=== PATIENT | female | born 1960 | race Caucasian/White ===

== ENCOUNTER 2016-08-29 13:22 | Emergency (ER) | payer BC ==
[2016-08-29 13:32] VITALS: BP 116/78
[2016-08-29] MEDS ORDERED: Sodium Chloride 0.9% 10 ML Syringe FLUSH PRN (14:24)
[2016-08-29] MEDS ORDERED: Metoclopramide 10 MG/2 ML SDV IVPUSH ONE (14:24)
[2016-08-29] MEDS ORDERED: Sodium Chloride 0.9% 1,000 ML IV ONE (14:24)
[2016-08-29] MEDS ORDERED: diphenhydrAMINE 50 MG/ML SDV IVPUSH ONE (14:24)
[2016-08-29] MEDS ORDERED: Ketorolac 30 MG/ML SDV IVPUSH ONE (14:24)
--- NOTE | 2016-08-29 14:48 | CT ---
Head CT Technique: Multiple axial sections through the brain were obtained. Intravenous contrast was not utilized. Comparison: No previous study. Findings: Ventricles along with basal cisterns and sulci over the convexities appear within normal limits for the patient's age. No abnormal parenchymal densities are seen. No evidence of intracranial hemorrhage. No midline shift or mass effect is seen. Bone window settings were reviewed which shows mucosal thickening within the right side of the posterior ethmoid sinus. Other sinuses are clear. No acute calvarial abnormality is seen. Enlarged right jugular foramen is seen which is felt to be normal variant. Impression: 1. Findings which are felt to be incidental as described above. No acute intracranial abnormality or acute skull fracture is seen. Diagnostic code #2
--- NOTE | 2016-08-29 15:04 | EDM.PDOC ---
ED HPI GENERAL MEDICAL PROBLEM - General Chief Complaint: Headache Stated Complaint: Headache Time Seen by Provider: 08/29/16 14:10 Source of Information: Reports: Patient, RN Notes Reviewed History Limitations: Reports: No Limitations - History of Present Illness INITIAL COMMENTS - FREE TEXT/NARRATIVE: 56 year old female presents to the ED complaints of severe left sided headache associated with nausea, vomiting, photophobia and phonophobia. She reports "dizziness" which she describes as feeling as though she will pass out. She denies vertigo type symptoms. She hit her head on her car door two days ago and has had a persistent headache since. She has tried Tylenol and Excedrin with no relief. She has a history of migraines but says this is different and is more severe. She also complaints of neck and shoulder muscle discomfort. She has a history of RA. No vision changes, slurred speech, difficulty walking, fever or chills. She is not on blood thinners or aspirin. Headache Pain Score (Numeric/FACES): 7 - Related Data Allergies Allergy/AdvReac Type Severity Reaction Status Date / Time codeine Allergy Severe Hives Verified 08/29/16 13:31 hydrocodone Allergy Severe Rash Verified 08/29/16 13:31 morphine Allergy Severe Hives Verified 08/29/16 13:31 ondansetron HCl Allergy Itching Verified 08/29/16 13:31 [From Zofran (as hydrochloride)] Home Meds: Home Meds Adalimumab [Humira] 40 mg SQ ASDIRECTED 08/29/16 [History] Cyclobenzaprine [Flexeril] 10 mg PO TID 08/29/16 [History] Folic Acid 1 mg PO DAILY 08/29/16 [History] Past Medical History - Past Health History Medical/Surgical History: Denies 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 Denies: Fever, Chills HEENT: Reports: No Symptoms. Denies: Vision Change Respiratory: Reports: No Symptoms. Denies: Shortness of Breath Cardiovascular: Reports: No Symptoms. Denies: Chest Pain GI/Abdominal: Reports: Nausea, Vomiting. Denies: Abdominal Pain Musculoskeletal: Reports: Neck Pain, Shoulder Pain - Physical Exam Exam: See Below Exam Limited By: No Limitations General Appearance: Alert, WD/WN, Moderate Distress Eye Exam: Bilateral Eye: EOMI, PERRL Throat/Mouth: Normal Inspection, Normal Oropharynx Head Exam: Atraumatic, Normocephalic Neck: Normal Inspection, Supple, Non-Tender, Full Range of Motion. No: Tender Midline Respiratory/Chest: No Respiratory Distress, Lungs Clear, Normal Breath Sounds Cardiovascular: Regular Rate, Rhythm Neuro Exam (Abbreviated): Alert, Oriented, CN II-XII Intact, Normal Cognition, Normal Gait, No Motor/Sensory Deficits Skin Exam: Warm, Dry, Intact Course - Vital Signs Last Recorded V/S: Last Vital Signs Temp 97.3 F 08/29/16 13:28 Pulse 89 08/29/16 13:28 Resp 18 08/29/16 13:28 BP 116/78 08/29/16 13:28 Pulse Ox 97 08/29/16 13:28 - Orders/Labs/Meds Orders: Active Orders 24 hr Category Date Time Status Orthostatic Vital Signs [RC] ASDIRECTED Care 08/29/16 14:25 Active Peripheral IV Care [RC] . DIRECTED Care 08/29/16 14:25 Active Peripheral IV Insertion Adult [OM.PC] Stat Oth 08/29/16 14:25 Ordered Meds: Medications Discontinued Medications Generic Name Dose Route Start Last Admin Trade Name Bharti PRN Reason Stop Dose Admin Diphenhydramine HCl 50 mg 08/29/16 14:24 08/29/16 14:46 Benadryl IVPUSH 08/29/16 14:25 50 mg ONETIME ONE Administration Sodium Chloride 1,000 mls @ 999 mls/hr 08/29/16 14:24 08/29/16 14:47 Normal Saline IV 08/29/16 15:24 999 mls/hr ONETIME ONE Administration Ketorolac Tromethamine 30 mg 08/29/16 14:24 08/29/16 14:45 Toradol IVPUSH 08/29/16 14:25 30 mg ONETIME ONE Administration Metoclopramide HCl 5 mg 08/29/16 14:24 08/29/16 14:44 Reglan IVPUSH 08/29/16 14:25 5 mg ONETIME ONE Administration Sodium Chloride 10 ml 08/29/16 14:24 08/29/16 14:44 Saline Flush FLUSH 10 ml ASDIRECTED PRN Administration Keep Vein Open - Re-Assessments/Exams Free Text/Narrative Re-Assessment/Exam: CT of head is negative for acute findings. Her pain improved to a 3/10 after Benadryl, Reglan and Toradol. She started to feel itchy after the medications and reported hives. She had no visible hives on exam. She is quite anxious. She' s had Benadryl and Toradol in the past with no problems and feels it may be the reglan. Offered steroid both for headache and allergic reaction symptoms but patient refused. She was monitored with no worsening of symptoms and discharged home. Departure - Departure Time of Disposition: 16:23 Disposition: Home, Self-Care 01 Condition: Fair Clinical Impression: Headache - Discharge Information Instructions: General Headache Without Cause Referrals: Martina Landry PA-C [Primary Care Provider] - Forms: ED Department Discharge Additional Instructions: Go home and rest in a dark quiet environment Tylenol or Ibuprofen as needed for pain Return to ER if your symptoms worsen No driving today due to sedating medications given in the ER Benadryl as needed for itching - My Orders Last 24 Hours: My Active Orders 08/29/16 14:25 Orthostatic Vital Signs [RC] ASDIRECTED Peripheral IV Care [RC] . DIRECTED Peripheral IV Insertion Adult [OM.PC] Stat - Assessment/Plan Last 24 Hours: My Active Orders 08/29/16 14:25 Orthostatic Vital Signs [RC] ASDIRECTED Peripheral IV Care [RC] . DIRECTED Peripheral IV Insertion Adult [OM.PC] Stat
== END 2016-08-29 16:36 | disposition home or self-care (01) ==
LOC: JD.ED 13:22
DX: R51 Headache (principal); Z87.891 Personal history of nicotine dependence; Z88.5 Allergy status to narcotic agent; Z88.8 Allergy status to other drugs, medicaments and biological substances; Z79.899 Other long term (current) drug therapy
CPT/HCPCS: 70450; 96361; 96374; 96375; 99284; J1200; J1885; J2765; J7040; J7050

== ENCOUNTER 2016-11-07 11:46 | Day surgery (SDC) | payer BC, OTHER ==
[~2016-11-07 11:46] MED LIST: Lactated Ringers 1,000 ML IV SCH; Lidocaine 1%/Sod Bicarbonate in NS 8.4% 1 ML Syringe PRN; Scopolamine 1.5 MG Transdermal Patch TRDERM ONE; Sodium Chloride 0.9% 10 ML Syringe FLUSH PRN
[2016-11-07] MEDS ORDERED: Triamcinolone Acetonide 40 MG/ML 1 ML MDV ONE ×2 (13:17→13:49)
[2016-11-07] MEDS ORDERED: Lidocaine 1% 30 ML SDV ONE (13:23)
[2016-11-07] MEDS ORDERED: Scopolamine 1.5 MG Transdermal Patch TRDERM ONE (13:45)
--- NOTE | 2016-11-07 13:50 | PCM.PREANE ---
Preanesthetic Assessment - Anesthesia/Transfusion/Family Hx Anesthesia History: Prior Anesthesia Reaction Type of Anesthesia Reaction: Excessive Nausea/Vomiting Family History of Anesthesia Reaction: No Transfusion History: No Prior Transfusion(s) - Review of Systems General: No Symptoms Pulmonary: No Symptoms Cardiovascular: No Symptoms Gastrointestinal: No Symptoms Neurological: No Symptoms Other: Reports: None - Physical Assessment NPO Status Date: 11/07/16 NPO Status Time: 05:30 Pulse: 62 O2 Sat by Pulse Oximetry: 94 Respiratory Rate: 18 Blood Pressure: 99/50 Temperature: 97.9 C Height: 1.7 m Weight: 76.204 kg ASA Class: 2 Mental Status: Alert & Oriented x3 Airway Class: Mallampati = 1 Dentition: Reports: Normal Dentition Thyro-Mental Finger Breadths: 3 Mouth Opening Finger Breadths: 3 ROM/Head Extension: Full Lungs: Clear to Auscultation, Normal Respiratory Effort Cardiovascular: Regular Rate, Regular Rhythm - Lab Values: Laboratory Last Values MRSA (PCR) Negative 10/29/16 16:38 - Allergies Allergies/Adverse Reactions: Allergies Allergy/AdvReac Type Severity Reaction Status Date / Time codeine Allergy Severe Hives Verified 11/06/16 14:49 hydrocodone Allergy Severe Rash Verified 11/06/16 14:49 morphine Allergy Severe Hives Verified 11/06/16 14:49 ondansetron HCl Allergy Itching Verified 11/06/16 14:49 [From Zofran (as hydrochloride)] - Acknowledgements Anesthesia Type Planned: Regional Block (Ankle Block), MAC Pt an Appropriate Candidate for the Planned Anesthesia: Yes Alternatives and Risks of Anesthesia Discussed w Pt/Guardian: Yes Pt/Guardian Understands and Agrees with Anesthesia Plan: Yes PreAnesthesia Questionnaire - Past Health History Medical/Surgical History: Denies Medical/Surgical History HEENT History: Reports: None Cardiovascular History: Reports: None Respiratory History: Reports: None Gastrointestinal History: Reports: Colon Polyp, Diverticulosis Genitourinary History: Reports: None 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: , 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 (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 Below) Other OB/BYN History: ectopic Musculoskeletal History: Reports: Other (See Below) Other Musculoskeletal History: enthesopathy Neurological History: Reports: Migraines Psychiatric History: Reports: None Endocrine/Metabolic History: Reports: None Hematologic History: Reports: None Immunologic History: Reports: None Oncologic (Cancer) History: Reports: None Dermatologic History: Reports: None - Infectious Disease History Infectious Disease History: Reports: Hepatitis A - Past Surgical History HEENT Surgical History: Reports: None Cardiovascular Surgical History: Reports: None Respiratory Surgical History: Reports: None GI Surgical History: Reports: Cholecystectomy, Colonoscopy, Other (See Below) Other GI Surgeries/Procedures: hernia repair Female Surgical History: Reports: None Endocrine Surgical History: Reports: None Musculoskeletal Surgical History: Reports: Carpal Tunnel, Other (See Below) Other Musculoskeletal Surgeries/Procedures:: R ankle surgery, R meniscus repair Oncologic Surgical History: Reports: None Dermatological Surgical History: Reports: None - SUBSTANCE USE Smoking Status *Q: Former Smoker Tobacco Use Within Last Twelve Months: No Second Hand Smoke Exposure: No Days Per Week of Alcohol Use: 0 Recreational Drug Use History: No - HOME MEDS Home Medications: Home Meds Adalimumab [Humira] 40 mg SQ Q14D 08/29/16 [History] Cyclobenzaprine [Flexeril] 10 mg PO BEDTIME PRN 08/29/16 [History] Folic Acid 1 mg PO DAILY 08/29/16 [History] Ca Carbonate/Vitamin D3/Vit K [Calcium + D Soft Chewable Tab] 1 tab PO DAILY [History] Esomeprazole Magnesium [Nexium 24Hr] 20 mg PO DAILY 11/06/16 [History] Gluc/Jonah-Msm#1/Vit C/Krish/Bor [Qgyciiy-Qrtlp-XUT Complex Cplt] 1 tab PO DAILY 11/06/16 [History] Meloxicam [Mobic] 7.5 mg PO BID 11/06/16 [History] Methotrexate Sodium [Methotrexate] 15 mg PO WEEKLY 11/06/16 [History] SUMAtriptan Succinate [Imitrex] 50 mg PO ASDIRECTED PRN 11/06/16 [History] traMADol [Ultram] 25 mg PO TID PRN 11/06/16 [History] - CURRENT (IN HOUSE) MEDS Current Meds: Current Medications Lactated Ringer's (Ringers, Lactated) 1,000 mls @ 125 mls/hr IV ASDIRECTED JOSÉ MIGUEL Stop: 11/07/16 23:00 Last Admin: 11/07/16 13:18 Dose: 125 mls/hr Lidocaine/Sodium Bicarbonate (Buffered Lidocaine 1% In Ns 8.4%) 0.25 ml .XX ONETIME PRN PRN Reason: Prior to IV Start Stop: 11/07/16 18:00 Last Admin: 11/07/16 13:18 Dose: 0.25 ml Scopolamine (Transderm-Scop) 1.5 mg TRDERM ONETIME ONE Stop: 11/07/16 13:46 Sodium Chloride (Saline Flush) 10 ml FLUSH ASDIRECTED PRN PRN Reason: Keep Vein Open Stop: 11/07/16 18:00 Discontinued Medications Bupivacaine HCl (Marcaine 0.25%) Confirm Administered Dose 30 ml .ROUTE .STK- MED ONE Stop: 11/07/16 13:18 Lidocaine HCl (Xylocaine-Mpf 1%) Confirm Administered Dose 30 ml .ROUTE .STK- MED ONE Stop: 11/07/16 13:24 Scopolamine (Transderm-Scop) 1.5 mg TRDERM ONETIME ONE Stop: 11/07/16 07:01 Triamcinolone Acetonide (Kenalog-40) Confirm Administered Dose 40 mg .ROUTE .STK -MED ONE Stop: 11/07/16 13:18
[2016-11-07] MEDS ORDERED: ceFAZolin 1 GM Vial ONE (14:24)
[2016-11-07] MEDS ORDERED: Lidocaine 1% 4 ML ONE (14:24)
[2016-11-07] MEDS ORDERED: Propofol 200 MG/20 ML SDV ONE ×4 (14:25→16:24)
[2016-11-07] MEDS ORDERED: fentaNYL 100 MCG/2 ML SDV ONE ×2 (14:25→16:25)
[2016-11-07] MEDS ORDERED: Midazolam 1 MG/ML 2 ML SDV ONE (14:25)
[2016-11-07] MEDS ORDERED: Ketamine 500 mg/10 ML MDV ONE (14:26)
[2016-11-07] MEDS: Bupivacaine 0.25% 30 ML SDV ONE ×2 (14:46→16:22)
[2016-11-07] MEDS ORDERED: fentaNYL 100 MCG/2 ML SDV IVPUSH PRN (15:11)
--- NOTE | 2016-11-07 16:45 | PCM48HPAN ---
Post Anesthesia Note - EVALUATION WITHIN 48HRS OF ANESTHETIC Vital Signs in Normal Range: Yes Patient Participated in Evaluation: Yes Respiratory Function Stable: Yes Airway Patent: Yes Cardiovascular Function Stable: Yes Hydration Status Stable: Yes Pain Control Satisfactory: Yes Nausea and Vomiting Control Satisfactory: Yes Mental Status Recovered: Yes
[2016-11-07 17:55] VITALS: BP 117/72
--- NOTE | 2016-11-08 10:10 | CR ---
Left foot: Multiple fluoroscopic spot views were obtained of the left foot utilizing C-arm device. Comparison: No previous foot exam. Osteotomy noted within the distal first metatarsal and distal fifth metatarsal with metatarsal shaving. Fixation screws are placed across the osteotomy. Additional osteotomy is seen within the distal second metatarsal with single screw placement. Fluoroscopy time given as 22.5 seconds. Impression: 1. Osteotomy within the first, second and fifth metatarsals with metatarsal shaving. Fixation screws noted on final films affixing the osteotomy sites. Diagnostic code #2
--- NOTE | 2016-11-13 10:01 | PCM.OPNOTE ---
- General Post-Op/Procedure Note Date of Surgery/Procedure: 11/07/16 Operative Procedure(s): 1. Left foot hallux valgus correction with distal chevron osteotomy with lateral capsulotomy and medial eminence resection. 2. Left second claw toe correction wtih flexor tenotomy and extensor tendon lengthening with dorsal capsulotomy of second MTP. 3. Left second metatarsal shortening osteotomy. 4. Bunionette correction with distal chevron osteotomy. 5. left knee corticosteroid injection Pre Op Diagnosis: left knee osteoarthrosis. left foot hallux valgus. left foot second toe claw toe deformity. left foot bunionette deformity. left foot second toe metatarsalgia Post-Op Diagnosis: Same Anesthesia Technique: Local, MAC, Regional Block Primary Surgeon: Darwin Suero Anesthesia Provider: Elly Brito Die Turner: Mariely Kaye in mLs: 10 Complications: None Condition: Good
--- NOTE | 2016-11-13 14:40 | OR ---
DATE OF OPERATION: 11/07/2016 SURGEON: Darwin Suero MD OPERATION PERFORMED: 1. Left foot hallux valgus correction with distal Chevron osteotomy with lateral capsulotomy and medial eminence resection. 2. Left second claw toe correction with flexor tenotomy and extensor tendon lengthening with dorsal capsulotomy of second metatarsophalangeal joint. 3. Left second metatarsal shortening osteotomy. 4. Bunionette correction with distal Chevron osteotomy. 5. Left knee corticosteroid injection. PREOPERATIVE DIAGNOSIS: 1. Left knee osteoarthrosis. 2. Left foot hallux valgus. 3. Left foot second toe claw toe deformity. 4. Left foot bunionette deformity. 5. Left foot toe metatarsalgia. POSTOPERATIVE DIAGNOSIS: 1. Left knee osteoarthrosis. 2. Left foot hallux valgus. 3. Left foot second toe claw toe deformity. 4. Left foot bunionette deformity. 5. Left foot toe metatarsalgia. ANESTHESIA: Local MAC with regional block. ANESTHESIA PROVIDER: , TESTER OPERATOR HELPER SPACE AND STORAGE CLERK: Mariely Kaye PA-C. ESTIMATED BLOOD LOSS: Less than 10 mL. COMPLICATIONS: None. CONDITION: Stable. DESCRIPTION OF PROCEDURE: The patient was identified in the preoperative holding area. Proper site was marked and identified by the surgeon. The patient was taken back to the operative theater where after adequate anesthesia, a nonsterile tourniquet was applied to the left lower extremity, and then was sterilely prepped and draped in the usual sterile fashion. OR time-out was performed. The patient received 2 g IV Ancef. After this left lower extremity was exsanguinated with the Esmarch, and Esmarch was used as a tourniquet on the calf. Next, an ankle block was performed along with local along the incisional site. A medial incision was made over the first MTP joint and a capsulotomy was performed. Capsule was then raised and the patient was noted to have a prominent medial eminence. The patient had no signs of osteoarthrosis of the first MTP joint. At this time, the medial eminence resection was then done, and a chevron osteotomy was done to the distal metatarsal in the metatarsal metaphysis region. Once this was completed, the distal portion was shifted laterally, and a lateral capsulotomy was performed. At this time, a guide pin for the 3-0 Kaci cannulated screw was placed. It was found to be in adequate position with good correction of the hallux valgus on radiographs. At this time, a 3-0 Edwards cannulated screw was placed across the osteotomy site in retrograde fashion and had good compression. At this time, a plantar incision was made over the proximal phalanx. This was brought down to the flexor tendon sheath. The flexor tendon sheath was opened. The long flexor tendon was identified and a tenotomy was performed. An incision was then made dorsally over the second MTP joint. The extensor longus was then lengthened for later repair with Ethibond. Capsulotomy was then also performed of the dorsum of the second MTP joint for the claw-toe deformity. At this time, also the second metatarsal had a diagonal osteotomy performed for shortening. Once this was completed, it was shortened and aligned with the first ray and a 2- 0 cannulated screw was then placed dorsally to plantarly to hold the osteotomy site. It was found to have adequate fixation. Attention was then turned to the bunion, and a bunionette deformity incision was made along the lateral aspect of the 5th metatarsal phalangeal joint. This was brought down to the capsule, this was then raised and incised. Distal chevron osteotomy was then performed of the 5th metatarsal. This was then moved medially for correction of the bunionette deformity and was pinned in place. At this time, an another 2-0 cannulated Edwards screw was used in retrograde fashion to secure the 5th metatarsal osteotomy. The lateral edge of the 5th metatarsal was then resected using the rongeur. At this time, on radiographs, this was found to have adequate fixation with correction of the bunionette and bunion deformity as well as shortening of the second metatarsal. Adequate saline was then irrigated through all wounds. A 3-0 Ethibond was then used for closure of the capsule, both with a bunionette and bunion deformity with a [id number] fashion to tighten capsule with good correction under fluoroscopy and on exam of the deformities. The skin was then closed using 3-0 Vicryl and 4-0 nylon. The patient was placed in a sterile soft dressing and a posterior slab splint. The patient then had a left knee corticosteroid injection with 2 mL 40 mg Kenalog and 4 mL of 0.25% Marcaine. The patient tolerated the procedures well. The patient was sent to PACU in stable condition. GALEN /[id number]
== END 2016-11-07 17:50 | disposition home or self-care (01) ==
LOC: JD.SDS 11:46
PROVIDERS: ATTEND Orthopaedic Surgery
DX: M17.12 Unilateral primary osteoarthritis, left knee (principal); M20.12 Hallux valgus (acquired), left foot; Q66.89 Other specified congenital deformities of feet; M21.622 Bunionette of left foot; M77.42 Metatarsalgia, left foot; Z88.8 Allergy status to other drugs, medicaments and biological substances; Z79.899 Other long term (current) drug therapy; Z90.49 Acquired absence of other specified parts of digestive tract; Z98.890 Other specified postprocedural states; Z87.891 Personal history of nicotine dependence; W10.9XXA Fall (on) (from) unspecified stairs and steps, initial encounter
CPT/HCPCS: 28110; 28285; 28296; 76000; 87641; A9270; C1713; C1769; J0690; J2250; J3010; J3301; J3490; J7120; 01480; J2704

== ENCOUNTER 2017-02-26 09:53 | Inpatient (IN) | payer BC ==
--- NOTE | 2017-02-26 09:05 | PCM.PREANE ---
Preanesthetic Assessment - Anesthesia/Transfusion/Family Hx Anesthesia History: Prior Anesthesia Reaction Type of Anesthesia Reaction: Excessive Nausea/Vomiting (vomits times twice after waking up from surgery and then thats all.) Family History of Anesthesia Reaction: No Transfusion History: No Prior Transfusion(s) Intubation History: Unknown - Review of Systems General: No Symptoms Pulmonary: No Symptoms (quit smoking in 2008) Cardiovascular: No Symptoms (occasional angina noted per patient which she contributes to stress/anxiety.), Dyspnea on Exertion Gastrointestinal: No Symptoms Neurological: No Symptoms (history of rheumatoid arthritis, history of vertigo) , Headache (history of migraines) Other: Reports: None (History of Hepatitis A as a teenager but resolved per patient./BUN elevated =21), Depression (with rheumatoid arthritis) - Physical Assessment NPO Status Date: 02/25/17 NPO Status Time: 01:29 Pulse: 65 O2 Sat by Pulse Oximetry: 95 Respiratory Rate: 16 Blood Pressure: 121/77 Temperature: 36.9 C Height: 1.7 m Weight: 78.018 kg ASA Class: 2 Mental Status: Alert & Oriented x3 Airway Class: Mallampati = 2 Dentition: Reports: Normal Dentition, Missing Tooth/Teeth, Caries Thyro-Mental Finger Breadths: 3 Mouth Opening Finger Breadths: 3 ROM/Head Extension: Full Lungs: Clear to Auscultation, Normal Respiratory Effort Cardiovascular: Regular Rate, Regular Rhythm, No Murmurs - Lab Values: MRSA screen negative. All labs reviewed and noted and within acceptable ranges to proceed with scheduled procedure. BUN= 21 Cr=0.7 Platelets= 239,000 - Imaging/EKG Impressions: EKG: SB rate=56 CXR: negative - Allergies Allergies/Adverse Reactions: Allergies Allergy/AdvReac Type Severity Reaction Status Date / Time codeine Allergy Mild Hives Verified 02/26/17 11:01 morphine Allergy Mild Hives Verified 02/26/17 11:01 ondansetron HCl Allergy Itching Verified 02/26/17 11:01 [From Zofran (as hydrochloride)] - Anesthesia Plan Pre-Op Medication Ordered: None - Acknowledgements Anesthesia Type Planned: Spinal Pt an Appropriate Candidate for the Planned Anesthesia: Yes Alternatives and Risks of Anesthesia Discussed w Pt/Guardian: Yes Pt/Guardian Understands and Agrees with Anesthesia Plan: Yes PreAnesthesia Questionnaire - Past Health History Medical/Surgical History: Denies Medical/Surgical History HEENT History: Reports: None Cardiovascular History: Reports: None Respiratory History: Reports: None Gastrointestinal History: Reports: Colon Polyp, Diverticulosis, Other (See Below ) Other Gastrointestinal History: hepatitis A Genitourinary History: Reports: None 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[employer] SQU[employer] History: Reports: Ectopic , , Other (See Below) Musculoskeletal History: Reports: Other (See Below) Other Musculoskeletal History: enthesopathy Neurological History: Reports: Migraines Psychiatric History: Reports: None Endocrine/Metabolic History: Reports: None Hematologic History: Reports: None Immunologic History: Reports: None Oncologic (Cancer) History: Reports: None Dermatologic History: Reports: None - Infectious Disease History Infectious Disease History: Reports: Hepatitis A - Past Surgical History Head Surgeries/Procedures: Reports: None HEENT Surgical History: Reports: Oral Surgery Cardiovascular Surgical History: Reports: None Respiratory Surgical History: Reports: None GI Surgical History: Reports: Cholecystectomy, Colonoscopy, Hernia Repair/Other , Other (See Below) Other GI Surgeries/Procedures: hernia repair Female Surgical History: Reports: Cystectomy Male Surgical History: Reports: None Endocrine Surgical History: Reports: None Neurological Surgical History: Reports: None Musculoskeletal Surgical History: Reports: Carpal Tunnel, Other (See Below) Other Musculoskeletal Surgeries/Procedures:: R ankle surgery, R meniscus repair , right knee meniscus repair, bunion correction Oncologic Surgical History: Reports: None Dermatological Surgical History: Reports: None - SUBSTANCE USE Smoking Status *Q: Former Smoker Tobacco Use Within Last Twelve Months: No Second Hand Smoke Exposure: No Days Per Week of Alcohol Use: 0 Recreational Drug Use History: No - HOME MEDS Home Medications: Home Meds Adalimumab [Humira] 40 mg SQ Q14D 08/29/16 [History] Cyclobenzaprine [Flexeril] 10 mg PO BEDTIME PRN 08/29/16 [History] Folic Acid 1 mg PO DAILY 08/29/16 [History] Methotrexate Sodium [Methotrexate] 15 mg PO WEEKLY 11/06/16 [History] SUMAtriptan Succinate [Imitrex] 50 mg PO ASDIRECTED PRN 11/06/16 [History] Ca Carbonate/Vitamin D3/Vit K [Calcium + D Soft Chewable Tab] 1 tab PO DAILY 03/02 [History] Meloxicam [Mobic] 7.5 mg PO BID PRN 02/25/17 [History] Cholecalciferol (Vitamin D3) [Vitamin D3] 1 tab PO DAILY 02/26/17 [History] - CURRENT (IN HOUSE) MEDS Current Meds: Current Medications Lactated Ringer's (Ringers, Lactated) 1,000 mls @ 125 mls/hr IV ASDIRECTED JOSÉ MIGUEL Lidocaine/Sodium Bicarbonate (Buffered Lidocaine 1% In Ns 8.4%) 0.25 ml IV ONETIME PRN PRN Reason: Prior to IV Start Miscellaneous Information (Remove Patch) 1 ea TRDERM Q72H JOSÉ MIGUEL Sodium Chloride (Saline Flush) 10 ml FLUSH ASDIRECTED PRN PRN Reason: Keep Vein Open Discontinued Medications Dexamethasone (Dexamethasone) Confirm Administered Dose 20 mg .ROUTE .STK-MED ONE Stop: 02/26/17 06:52 Fentanyl (Sublimaze) Confirm Administered Dose 100 mcg .ROUTE .STK-MED ONE Stop: 02/26/17 06:52 Lidocaine HCl (Xylocaine-Mpf 1%) Confirm Administered Dose 10 mls @ as directed .ROUTE .STK-MED ONE Stop: 02/26/17 06:52 Lactated Ringer's (Ringers, Lactated) Confirm Administered Dose 1,000 mls @ as directed .ROUTE .STK-MED ONE Stop: 02/26/17 06:52 Ketorolac Tromethamine (Toradol) Confirm Administered Dose 30 mg .ROUTE .STK- MED ONE Stop: 02/26/17 06:52 Midazolam HCl (Versed 1 Mg/Ml) Confirm Administered Dose 2 mg .ROUTE .STK-MED ONE Stop: 02/26/17 06:52 Ondansetron HCl (Zofran) Confirm Administered Dose 4 mg .ROUTE .STK-MED ONE Stop: 02/26/17 06:52 Propofol (Diprivan 20 Ml) Confirm Administered Dose 400 mg .ROUTE .STK-MED ONE Stop: 02/26/17 06:52 Scopolamine (Transderm-Scop) 1.5 mg TRDERM ONETIME ONE Stop: 02/26/17 00:01
[~2017-02-26 09:53] MED LIST changes: +Bisacodyl 5 MG Tab PO PRN; +Dexamethasone 4 MG/ML 5 ML MDV ONE; +Ketorolac 30 MG/ML SDV ONE; -Lactated Ringers 1,000 ML IV SCH; +Lactated Ringers 1,000 ML ONE; +Lidocaine 1%/Sod Bicarbonate in NS 8.4% 1 ML Syringe IV PRN; -Lidocaine 1%/Sod Bicarbonate in NS 8.4% 1 ML Syringe PRN; +Magnesium Hydroxide 400 MG/5 ML Susp 30 ML Cup PO PRN; +Midazolam 1 MG/ML 2 ML SDV ONE; +Naloxone 0.4 MG/ML SDV IVPUSH PRN; +Ondansetron 4 MG/2 ML SDV IVPUSH PRN; +Ondansetron 4 MG/2 ML SDV ONE; +Propofol 200 MG/20 ML SDV ONE; +Sennosides 8.6 MG Tab PO PRN; +diphenhydrAMINE 50 MG/ML SDV IVPUSH PRN; +fentaNYL 100 MCG/2 ML SDV ONE
[2017-02-26] MEDS ORDERED: Propofol 200 MG/20 ML SDV ONE (10:11)
[2017-02-26] MEDS: Lactated Ringers 1,000 ML IV SCH ×2 (10:30→14:30)
[2017-02-26] MEDS ORDERED: HYDROmorphone 0.5 MG/0.5 ML Syringe IVPUSH PRN ×2 (12:00→17:15)
--- NOTE | 2017-02-26 13:06 | PCM.CONS ---
H&P History of Present Illness - General Date of Service: 02/26/17 Admit Problem/Dx: Admission Diagnosis/Problem Admission Diagnosis/Problem Osteoarthritis of knee Source of Information: Patient, Other (Records review) History Limitations: Reports: No Limitations - History of Present Illness Initial Comments - Free Text/Narative: Mackenzie is a 57-year-old female status post right total knee arthroplasty with Dr. Suero this morning. Doing well thus far. Vital signs stable. Hospitalist service is consulted for postoperative medical management. Past medical history significant for rheumatoid arthritis on methotrexate and Humira, anxiety depression, migraine headaches, history of renal stones, history of vertigo, history of hepatitis A as a teenager/resolved, she is a former smoker. Patient is full CODE STATUS. PCP is Matrina Landry PA-C with [facility] in [place] - Related Data Allergies/Adverse Reactions: Allergies Allergy/AdvReac Type Severity Reaction Status Date / Time codeine Allergy Mild Hives Verified 02/26/17 11:01 morphine Allergy Mild Hives Verified 02/26/17 11:01 ondansetron HCl Allergy Itching Verified 02/26/17 11:01 [From Zofran (as hydrochloride)] Home Medications: Home Meds Adalimumab [Humira] 40 mg SQ Q14D 08/29/16 [History] Cyclobenzaprine [Flexeril] 10 mg PO BEDTIME PRN 08/29/16 [History] Folic Acid 1 mg PO DAILY 08/29/16 [History] Methotrexate Sodium [Methotrexate] 15 mg PO WEEKLY 11/06/16 [History] SUMAtriptan Succinate [Imitrex] 50 mg PO ASDIRECTED PRN 11/06/16 [History] Ca Carbonate/Vitamin D3/Vit K [Calcium + D Soft Chewable Tab] 1 tab PO DAILY 03/02 [History] Meloxicam [Mobic] 7.5 mg PO BID PRN 02/25/17 [History] Cholecalciferol (Vitamin D3) [Vitamin D3] 1 tab PO DAILY 02/26/17 [History] Past Medical History - Past Health History Medical/Surgical History: Denies Medical/Surgical History HEENT History: Reports: None Cardiovascular History: Reports: None Respiratory History: Reports: None Gastrointestinal History: Reports: Colon Polyp, Diverticulosis, Other (See Below ) Other Gastrointestinal History: hepatitis A Genitourinary History: Reports: None 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 , , Other (See Below) Musculoskeletal History: Reports: Other (See Below) Other Musculoskeletal History: enthesopathy Neurological History: Reports: Migraines Psychiatric History: Reports: None Endocrine/Metabolic History: Reports: None Hematologic History: Reports: None Immunologic History: Reports: None Oncologic (Cancer) History: Reports: None Dermatologic History: Reports: None - Infectious Disease History Infectious Disease History: Reports: Hepatitis A - Past Surgical History Head Surgeries/Procedures: Reports: None HEENT Surgical History: Reports: Oral Surgery Cardiovascular Surgical History: Reports: None Respiratory Surgical History: Reports: None GI Surgical History: Reports: Cholecystectomy, Colonoscopy, Hernia Repair/Other , Other (See Below) Other GI Surgeries/Procedures: hernia repair Female Surgical History: Reports: Cystectomy Male Surgical History: Reports: None Endocrine Surgical History: Reports: None Neurological Surgical History: Reports: None Musculoskeletal Surgical History: Reports: Carpal Tunnel, Other (See Below) Other Musculoskeletal Surgeries/Procedures:: R ankle surgery, R meniscus repair , right knee meniscus repair, bunion correction Oncologic Surgical History: Reports: None Dermatological Surgical History: Reports: None Social & Family History - Tobacco Use Smoking Status *Q: Former Smoker Used Tobacco, but Quit: Yes Month Tobacco Last Used: 2008 Second Hand Smoke Exposure: No - Caffeine Use Caffeine Use: Reports: Soda - Alcohol Use Days Per Week of Alcohol Use: 0 - Recreational Drug Use Recreational Drug Use: No H&P Review of Systems - Review of Systems: Review Of Systems: See Below General: Reports: No Symptoms. Denies: Fever, Chills HEENT: Reports: No Symptoms Pulmonary: Reports: No Symptoms. Denies: Shortness of Breath, Pleuritic Chest Pain, Cough Cardiovascular: Reports: No Symptoms. Denies: Chest Pain, Palpitations, Lightheadedness Gastrointestinal: Reports: No Symptoms. Denies: Abdominal Pain, Nausea Genitourinary: Reports: No Symptoms, Other (suarez) Musculoskeletal: Reports: Leg Pain Psychiatric: Reports: No Symptoms, Other (hx dep/anxiety) Neurological: Reports: No Symptoms Exam - Exam Exam: See Below - Vital Signs Vital Signs: Last Vital Signs Temp 98.5 F 02/26/17 11:23 Pulse 65 02/26/17 11:23 Resp 16 02/26/17 11:23 BP 121/77 02/26/17 11:23 Pulse Ox 95 02/26/17 11:23 Weight: 172 lb - Exam Quality Assessment: Supplemental Oxygen, Urinary Catheter, DVT Prophylaxis General: Alert, Oriented, Cooperative HEENT: Conjunctiva Clear, EOMI, Hearing Intact, Mucosa Moist & Aspen, Pupils Equal Neck: Supple, Trachea Midline Lungs: Clear to Auscultation, Normal Respiratory Effort Cardiovascular: Regular Rate, Regular Rhythm, Normal S1, Normal S2 GI/Abdominal Exam: Normal Bowel Sounds, Soft, Non-Tender (Female) Exam: Deferred Rectal (Female) Exam: Deferred Extremities: Other (José Luis wrap and ice to knee) Peripheral Pulses: 2+: Dorsalis Pedis (L), Dorsalis Pedis (R) Neuro Extensive - Mental Status: Alert, Oriented x3, Normal Mood/Affect, Normal Cognition, Memory Intact Psychiatric: Alert, Normal Affect, Normal Mood Consult PN Assessment/Plan POD#: 0 Procedures: Procedures ANTINUCLEAR ANTIBODIES (02/02/14) ASSAY OF BLOOD/URIC ACID (02/02/14) ASSAY THYROID STIM HORMONE (02/02/14) C-REACTIVE PROTEIN (11/27/16) CCP ANTIBODY (05/12/14) COMP SCREEN MAMMOGRAM ADD-ON (11/25/14) COMPLETE CBC AUTOMATED (11/27/16) COMPLETE CBC W/AUTO DIFF WBC (02/02/14) COMPREHEN METABOLIC PANEL (11/27/16) COMPUTER DX MAMMOGRAM ADD-ON (04/22/14) CORRECTION HALLUX VALGUS (11/07/16) CT ABD & PELVIS W/O CONTRAST (11/03/13) CT HEAD/BRAIN W/O DYE (08/29/16) EMERGENCY DEPT VISIT (08/29/16) EMERGENCY DEPT VISIT (04/16/14) EMERGENCY DEPT VISIT (11/03/13) FLUOROSCOPE EXAMINATION (11/07/16) HEPATITIS B SURFACE AG IA (05/12/14) HEPATITIS C AB TEST (05/12/14) HYDRATE IV INFUSION ADD-ON (08/29/16) LIPID PANEL (11/03/13) MR-STAPH DNA AMP PROBE (02/11/17) NUCLEAR ANTIGEN ANTIBODY (05/12/14) PART REMOVAL OF METATARSAL (11/07/16) PARVOVIRUS ANTIBODY (05/12/14) RBC SED RATE AUTOMATED (02/02/14) REPAIR OF HAMMERTOE (11/07/16) RHEUMATOID FACTOR TEST QUAL (02/02/14) ROUTINE VENIPUNCTURE (11/27/16) THER/PROPH/DIAG INJ IV PUSH (08/29/16) THER/PROPH/DIAG INJ SC/IM (02/02/14) TRANSVAGINAL US NON-OB (11/03/13) TX/PRO/DX INJ NEW DRUG ADDON (08/29/16) ULTRASOUND BREAST COMPLETE (04/22/14) URINALYSIS AUTO W/SCOPE (11/03/13) US EXAM ABDOM COMPLETE (11/04/13) US EXAM BREAST(S) (11/04/13) X-RAY EXAM OF ABDOMEN (11/03/13) X-RAY EXAM OF HAND (05/13/14) X-RAY EXAM OF KNEE 3 (04/16/14) X-RAY EXAM OF WRIST (09/13/14) (1) S/P total knee arthroplasty SNOMED Code(s): 8854617532708, 6562038908933 Code(s): Z96.659 - PRESENCE OF UNSPECIFIED ARTIFICIAL KNEE JOINT Priority: High Current Visit: Yes Qualifiers: Laterality: right Qualified Code(s): Z96.651 - Presence of right artificial knee joint (2) Osteoarthritis SNOMED Code(s): 060479895 Code(s): M19.90 - UNSPECIFIED OSTEOARTHRITIS, UNSPECIFIED SITE Priority: High Current Visit: Yes Qualifiers: Osteoarthritis location: knee Osteoarthritis type: primary Laterality: right Qualified Code(s): M17.11 - Unilateral primary osteoarthritis, right knee (3) Rheumatoid arthritis SNOMED Code(s): 21998193 Code(s): M06.9 - RHEUMATOID ARTHRITIS, UNSPECIFIED Priority: Medium Current Visit: No Qualifiers: Rheumatoid arthritis location: unspecified site Rheumatoid factor presence : unspecified presence Qualified Code(s): M06.9 - Rheumatoid arthritis, unspecified (4) Sinus bradycardia SNOMED Code(s): 20452774 Code(s): R00.1 - BRADYCARDIA, UNSPECIFIED Priority: Medium Current Visit : Yes (5) Anxiety and depression SNOMED Code(s): 705362320 Code(s): F41.8 - OTHER SPECIFIED ANXIETY DISORDERS Priority: Medium Current Visit: No Problem List Initiated/Reviewed/Updated: Yes Plan: I/P: S/P Rt total knee arthroplasty, POD # 0, Dr. Castaneda - Pain management and DVT prophylax per primary team - PT/OT - RT/IS - VSS at this time - Follow am labs/hgb Chronic conditions: Rheumatoid arthritis; hold methotrexate and Humira Anxiety/depression, continue home meds History of migraine headaches history of hepatitis A as a teenager/resolved History of renal stones Former smoker Other: GI Prophylax CM/SW for DC planning Patient is full Code status. PCP is Martina Landry PA-C with [facility] in [place]
[2017-02-26] MEDS ORDERED: fentaNYL 100 MCG/2 ML SDV IVPUSH ONE (14:44)
[2017-02-26] MEDS ORDERED: Vancomycin 1 GM SDV ONE (15:59)
[2017-02-26] MEDS ORDERED: ceFAZolin 1 GM Vial ONE ×3 (15:59→19:29)
[2017-02-26] MEDS ORDERED: Iodine/Sodium Iodide 2% Tincture 30 ML Bottle ONE (15:59)
[2017-02-26] MEDS ORDERED: Bupivacaine 0.25% 30 ML SDV ONE (16:00)
[2017-02-26] MEDS ORDERED: Lidocaine 1% 2 ML ONE ×3 (17:14)
[2017-02-26] MEDS ORDERED: Midazolam 1 MG/ML 2 ML SDV IVPUSH PRN (17:15)
[2017-02-26] MEDS ORDERED: Metoclopramide 10 MG/2 ML SDV IV PRN (17:15)
[2017-02-26] MEDS ORDERED: diphenhydrAMINE 50 MG/ML SDV IVPUSH PRN (17:15)
[2017-02-26] MEDS ORDERED: fentaNYL 100 MCG/2 ML SDV IVPUSH PRN (17:15)
[2017-02-26] MEDS: EPINEPHrine 0.3 MG, Cefuroxime 750 MG, Ketorolac 30 MG, Sodium Chloride 0.9% 28.7 ML ONE ×8 (18:01→21:17)
[2017-02-26] MEDS ORDERED: HYDROmorphone 1 MG/ML Syringe ONE (18:14)
[2017-02-26] MEDS ORDERED: Midazolam 1 MG/ML 2 ML SDV ONE (18:32)
[2017-02-26] MEDS ORDERED: SUMAtriptan 50 MG Tab PO PRN (18:38)
--- NOTE | 2017-02-26 18:54 | PCM.POSTAN ---
POST ANESTHESIA ASSESSMENT - MENTAL STATUS Mental Status: Alert - VITAL SIGNS Pulse Rate: 75 SaO2: 96 Resp Rate: 13 Blood Pressure: 107/57 Temperature: 36.2 C - RESPIRATORY Respiratory Status: Respiratory Rate WNL, Airway Patent, O2 Saturation Stable, Supplemental Oxygen - CARDIOVASCULAR CV Status: Pulse Rate WNL, Blood Pressure Stable - GASTROINTESTINAL GI Status: No Symptoms - POST OP HYDRATION Hydration Status: Adequate & Stable
[2017-02-26] MEDS ORDERED: Famotidine 20 MG/2 ML SDV IVPUSH ONE (19:11)
--- NOTE | 2017-02-26 19:22 | CR ---
Right knee: AP and lateral views of the right knee were obtained. Comparison: No previous right knee study. Knee prosthesis is seen. Components are aligned. Soft tissue air is noted from the surgical procedure. Underlying bony structures are intact. Impression: 1. Satisfactory radiographic appearance of recently placed right knee prosthesis. Diagnostic code #2
--- NOTE | 2017-02-26 19:42 | PCM.CONSN ---
- General Info Date of Service: 02/26/17 Admission Dx/Problem (Free Text): Admission Diagnosis/Problem Admission Diagnosis/Problem Osteoarthritis of knee Subjective Update: Mackenzie is a 57-year-old female status post right total knee arthroplasty with Dr. Suero this evening. She is resting comfortably in bed. Her surgery was delayed significantly due to other OR needs. She is post-operative now and doing well. Pain is 3/10 and controlled She denies any chest pain, shortness of breath, palpitations, nausea, or vomiting. She is eating. Vital signs stable. Hospitalist service is consulted for postoperative medical management. Past medical history significant for rheumatoid arthritis on methotrexate and Humira, anxiety depression, migraine headaches, history of renal stones, history of vertigo, history of hepatitis A as a teenager/resolved, she is a former smoker. Patient is full CODE STATUS. PCP is Martina Landry PA-C with [facility] in [place] Functional Status: Reports: Pain Controlled, Tolerating Diet, Urinating, Incentive Spirometry. Denies: New Symptoms - Review of Systems General: Reports: No Symptoms, Appetite. Denies: Fever, Weakness, Fatigue, Malaise, Chills HEENT: Reports: No Symptoms. Denies: Ear Pain, Eye Pain, Headaches, Sore Throat , Visual Changes Pulmonary: Reports: No Symptoms. Denies: Shortness of Breath, Cough, Sputum, Wheezing Cardiovascular: Reports: No Symptoms. Denies: Chest Pain, Palpitations, Edema, Lightheadedness Gastrointestinal: Reports: No Symptoms. Denies: Abdominal Pain, Constipation, Decreased Appetite, Diarrhea, Nausea, Vomiting Genitourinary: Reports: No Symptoms Musculoskeletal: Reports: Joint Pain (right knee - 3/10 ) Skin: Reports: No Symptoms Neurological: Reports: No Symptoms Psychiatric: Reports: No Symptoms - Patient Data Vitals - Most Recent: Last Vital Signs Temp 97.9 F 02/26/17 19:30 Pulse 75 02/26/17 18:54 Resp 22 H 02/26/17 19:30 BP 101/73 02/26/17 19:30 Pulse Ox 95 02/26/17 19:30 Weight - Most Recent: 172 lb I&O - Last 24 Hours: Intake & Output 02/26/17 02/26/17 02/26/17 06:59 14:59 22:59 Output Total 200 Balance -200 Med Orders - Current: Current Medications Bisacodyl (Dulcolax) 5 mg PO DAILY PRN PRN Reason: Constipation Cyclobenzaprine HCl (Flexeril) 10 mg PO TID PRN PRN Reason: Spasms Diphenhydramine HCl (Benadryl) 25 mg IVPUSH Q4H PRN PRN Reason: Nausea Diphenhydramine HCl (Benadryl) 25 mg IVPUSH Q6H PRN PRN Reason: pruritis Docusate Sodium (Colace) 100 mg PO BID [facility] Famotidine (Pepcid) 20 mg PO Q12H [facility] Fentanyl (Sublimaze) 50 mcg IVPUSH Q5M PRN PRN Reason: Pain Folic Acid (Folic Acid) 1 mg PO DAILY [facility] Hydromorphone HCl (Dilaudid) 0.2 mg IVPUSH Q2H PRN PRN Reason: Breakthrough Pain Hydromorphone HCl (Dilaudid) 0.5 mg IVPUSH Q15M PRN PRN Reason: severe pain Lactated Ringer's (Ringers, Lactated) 1,000 mls @ 125 mls/hr IV ASDIRECTED [facility] Last Admin: 02/26/17 14:30 Dose: 125 mls/hr Cefazolin Sodium/Dextrose 2 gm (/ Premix) 50 mls @ 100 mls/hr IV Q8H [facility] Stop: 02/27/17 16:29 Ketorolac Tromethamine (Toradol) 15 mg IVPUSH Q6H PRN PRN Reason: Pain Lidocaine/Sodium Bicarbonate (Buffered Lidocaine 1% In Ns 8.4%) 0.25 ml IV ONETIME PRN PRN Reason: Prior to IV Start Last Admin: 02/26/17 10:29 Dose: 0.25 ml Magnesium Hydroxide (Milk Of Magnesia) 30 ml PO BID PRN PRN Reason: Constipation Metoclopramide HCl (Reglan) 10 mg IV ONETIME PRN PRN Reason: Nausea/Vomiting Last Admin: 02/26/17 18:51 Dose: 10 mg Midazolam HCl (Versed 1 Mg/Ml) 2 mg IVPUSH ONETIME PRN PRN Reason: Sedation Miscellaneous Information (Remove Patch) 1 ea TRDERM Q72H [facility] Naloxone HCl (Narcan) 0.1 mg IVPUSH Q5M PRN PRN Reason: Oversedation Non-Formulary Medication (Cholecalciferol (Vitamin D3) [Vitamin D3]) 1 tab PO DAILY [facility] Oxycodone/Acetaminophen (Percocet 325-5 Mg) 1 - 2 tab PO Q4H PRN PRN Reason: Pain Rivaroxaban (Xarelto) 10 mg PO DAILY [facility] Senna (Senna) 8.6 mg PO BID PRN PRN Reason: Constipation Sodium Chloride (Saline Flush) 10 ml FLUSH ASDIRECTED PRN PRN Reason: Keep Vein Open Sumatriptan Succinate (Imitrex) 50 mg PO ASDIRECTED PRN PRN Reason: migraines Discontinued Medications Bupivacaine HCl (Marcaine 0.25%) Confirm Administered Dose 30 ml .ROUTE .STK- MED ONE Stop: 02/26/17 16:01 Last Admin: 02/26/17 17:56 Dose: 30 ml Cefazolin Sodium (Ancef) Confirm Administered Dose 2 gm .ROUTE .STK-MED ONE Stop: 02/26/17 16:00 Last Admin: 02/26/17 17:52 Dose: 2 gm Cefazolin Sodium (Ancef) Confirm Administered Dose 1 gm .ROUTE .STK-MED ONE Stop: 02/26/17 19:30 Cefazolin Sodium (Ancef) Confirm Administered Dose 1 gm .ROUTE .STK-MED ONE Stop: 02/26/17 19:30 Epinephrine HCl 0.3 mg/Cefuroxime Sodium 750 mg/Ketorolac Tromethamine 30 mg/ Sodium Chloride 28.7 ml 0 mg .XX ONETIME ONE Stop: 02/26/17 11:31 Last Admin: 02/26/17 18:01 Dose: 780.3 mg Dexamethasone (Dexamethasone) Confirm Administered Dose 20 mg .ROUTE .STK-MED ONE Stop: 02/26/17 06:52 Famotidine (Pepcid) 20 mg IVPUSH ONETIME ONE Stop: 02/26/17 19:12 Fentanyl (Sublimaze) Confirm Administered Dose 100 mcg .ROUTE .STK-MED ONE Stop: 02/26/17 06:52 Fentanyl (Sublimaze) 50 mcg IVPUSH ONETIME ONE Stop: 02/26/17 14:45 Last Admin: 02/26/17 14:49 Dose: 25 mcg Hydromorphone HCl (Dilaudid) Confirm Administered Dose 1 mg .ROUTE .STK-MED ONE Stop: 02/26/17 18:15 Lidocaine HCl (Xylocaine-Mpf 1%) Confirm Administered Dose 10 mls @ as directed .ROUTE .STK-MED ONE Stop: 02/26/17 06:52 Lactated Ringer's (Ringers, Lactated) Confirm Administered Dose 1,000 mls @ as directed .ROUTE .STK-MED ONE Stop: 02/26/17 06:52 Lidocaine HCl (Xylocaine-Mpf 1%) Confirm Administered Dose 2 mls @ as directed .ROUTE .STK-MED ONE Stop: 02/26/17 17:15 Lidocaine HCl (Xylocaine-Mpf 1%) Confirm Administered Dose 2 mls @ as directed .ROUTE .STK-MED ONE Stop: 02/26/17 17:15 Lidocaine HCl (Xylocaine-Mpf 1%) Confirm Administered Dose 2 mls @ as directed .ROUTE .STK-MED ONE Stop: 02/26/17 17:15 Acetaminophen (Ofirmev) 100 mls @ 400 mls/hr IV NOW ONE Stop: 02/26/17 17:35 Iodine (Iodine 2% Mild Tincture) Confirm Administered Dose 30 ml .ROUTE .STK- MED ONE Stop: 02/26/17 16:00 Last Admin: 02/26/17 17:48 Dose: 18 ml Ketorolac Tromethamine (Toradol) Confirm Administered Dose 30 mg .ROUTE .STK- MED ONE Stop: 02/26/17 06:52 Midazolam HCl (Versed 1 Mg/Ml) Confirm Administered Dose 2 mg .ROUTE .STK-MED ONE Stop: 02/26/17 06:52 Midazolam HCl (Versed 1 Mg/Ml) Confirm Administered Dose 2 mg .ROUTE .STK-MED ONE Stop: 02/26/17 18:33 Ondansetron HCl (Zofran) Confirm Administered Dose 4 mg .ROUTE .STK-MED ONE Stop: 02/26/17 06:52 Ondansetron HCl (Zofran) 4 mg IVPUSH Q6H PRN PRN Reason: Nausea/Vomiting Propofol (Diprivan 20 Ml) Confirm Administered Dose 400 mg .ROUTE .STK-MED ONE Stop: 02/26/17 06:52 Propofol (Diprivan 20 Ml) Confirm Administered Dose 200 mg .ROUTE .STK-MED ONE Stop: 12/13/17 10:12 Scopolamine (Transderm-Scop) 1.5 mg TRDERM ONETIME ONE Stop: 02/26/17 00:01 Last Admin: 02/26/17 17:36 Dose: Not Given Tranexamic Acid (Cyklokapron) Confirm Administered Dose 1,000 mg .ROUTE .STK- MED ONE Stop: 02/26/17 16:00 Last Admin: 02/26/17 18:05 Dose: 1,000 mg Vancomycin HCl (Vancomycin) Confirm Administered Dose 1 gm .ROUTE .STK-MED ONE Stop: 02/26/17 16:00 Last Admin: 02/26/17 18:01 Dose: 1 gm - Exam Quality Assessment: Urine Catheter, DVT Prophylaxis General: Alert, Oriented, Cooperative, No Acute Distress HEENT: Pupils Equal, Pupils Reactive, EOMI, Mucous Membr. Moist/[place] Neck: Supple, Trachea Midline, No JVD, No Thyromegaly Lungs: Clear to Auscultation, Normal Respiratory Effort Cardiovascular: Regular Rate, Regular Rhythm GI/Abdominal Exam: Normal Bowel Sounds, Soft, Non-Tender, No Organomegaly, No Distention, No Abnormal Bruit, No Mass, Pelvis Stable (Female) Exam: Deferred Back Exam: Normal Inspection, Full Range of Motion Extremities: No Pedal Edema, Normal Capillary Refill, Limited Range of Motion, Other (ADAMARIS bandage in place on right leg. Cooling pack in place ) Peripheral Pulses: 2+: Radial (L), Radial (R), Posterior Tibial (L), Posterior Tibial (R), Dorsalis Pedis (L), Dorsalis Pedis (R) Skin: Warm, Dry, Intact Wound/Incisions: Dressing Dry and Intact, No Drainage Neurological: No New Focal Deficit Psy/Mental Status: Alert, Normal Affect, Normal Mood Consult PN Assessment/Plan POD#: 0 Procedures: Procedures ANTINUCLEAR ANTIBODIES (02/02/14) ASSAY OF BLOOD/URIC ACID (02/02/14) ASSAY THYROID STIM HORMONE (02/02/14) C-REACTIVE PROTEIN (11/27/16) CCP ANTIBODY (05/12/14) COMP SCREEN MAMMOGRAM ADD-ON (11/25/14) COMPLETE CBC AUTOMATED (11/27/16) COMPLETE CBC W/AUTO DIFF WBC (02/02/14) COMPREHEN METABOLIC PANEL (11/27/16) COMPUTER DX MAMMOGRAM ADD-ON (04/22/14) CORRECTION HALLUX VALGUS (11/07/16) CT ABD & PELVIS W/O CONTRAST (11/03/13) CT HEAD/BRAIN W/O DYE (08/29/16) EMERGENCY DEPT VISIT (08/29/16) EMERGENCY DEPT VISIT (04/16/14) EMERGENCY DEPT VISIT (11/03/13) FLUOROSCOPE EXAMINATION (11/07/16) HEPATITIS B SURFACE AG IA (05/12/14) HEPATITIS C AB TEST (05/12/14) HYDRATE IV INFUSION ADD-ON (08/29/16) LIPID PANEL (11/03/13) MR-STAPH DNA AMP PROBE (02/11/17) NUCLEAR ANTIGEN ANTIBODY (05/12/14) PART REMOVAL OF METATARSAL (11/07/16) PARVOVIRUS ANTIBODY (05/12/14) RBC SED RATE AUTOMATED (02/02/14) REPAIR OF HAMMERTOE (11/07/16) RHEUMATOID FACTOR TEST QUAL (02/02/14) ROUTINE VENIPUNCTURE (11/27/16) THER/PROPH/DIAG INJ IV PUSH (08/29/16) THER/PROPH/DIAG INJ SC/IM (02/02/14) TRANSVAGINAL US NON-OB (11/03/13) TX/PRO/DX INJ NEW DRUG ADDON (08/29/16) ULTRASOUND BREAST COMPLETE (04/22/14) URINALYSIS AUTO W/SCOPE (11/03/13) US EXAM ABDOM COMPLETE (11/04/13) US EXAM BREAST(S) (11/04/13) X-RAY EXAM OF ABDOMEN (11/03/13) X-RAY EXAM OF HAND (05/13/14) X-RAY EXAM OF KNEE 3 (04/16/14) X-RAY EXAM OF WRIST (09/13/14) (1) S/P total knee arthroplasty SNOMED Code(s): 1297576265645, 3736277261830 Code(s): Z96.659 - PRESENCE OF UNSPECIFIED ARTIFICIAL KNEE JOINT Priority: High Current Visit: Yes Qualifiers: Laterality: right Qualified Code(s): Z96.651 - Presence of right artificial knee joint (2) Osteoarthritis SNOMED Code(s): 330598015 Code(s): M19.90 - UNSPECIFIED OSTEOARTHRITIS, UNSPECIFIED SITE Priority: High Current Visit: Yes Qualifiers: Osteoarthritis location: knee Osteoarthritis type: primary Laterality: right Qualified Code(s): M17.11 - Unilateral primary osteoarthritis, right knee (3) Sinus bradycardia SNOMED Code(s): 19725853 Code(s): R00.1 - BRADYCARDIA, UNSPECIFIED Priority: Medium Current Visit : Yes (4) Anxiety and depression SNOMED Code(s): 979045974 Code(s): F41.8 - OTHER SPECIFIED ANXIETY DISORDERS Priority: Medium Current Visit: No (5) Rheumatoid arthritis SNOMED Code(s): 36043570 Code(s): M06.9 - RHEUMATOID ARTHRITIS, UNSPECIFIED Priority: Medium Current Visit: No Qualifiers: Rheumatoid arthritis location: unspecified site Rheumatoid factor presence : unspecified presence Qualified Code(s): M06.9 - Rheumatoid arthritis, unspecified Problem List Initiated/Reviewed/Updated: Yes Plan: I/P: S/P Rt total knee arthroplasty, POD # 0, Dr. Suero - Pain management and DVT prophylax per primary team - PT/OT - RT/IS - VSS at this time - Follow am labs/hgb Chronic conditions: Rheumatoid arthritis; hold methotrexate and Humira Anxiety/depression, continue home meds History of migraine headaches history of hepatitis A as a teenager/resolved History of renal stones Former smoker Other: GI Prophylax CM/SW for DC planning Patient is full Code status. PCP is Martina Landry PA-C with [facility] in [place]
[2017-02-26] MEDS ORDERED: oxyCODONE 5 MG Tab PO PRN (19:50)
[2017-02-26] MEDS: Acetaminophen/oxyCODONE 325-5 MG Tab PO PRN ×2 (22:20→22:22)
[2017-02-26] MEDS: Ketorolac 15 MG/ML SDV IVPUSH PRN (22:20)
[2017-02-26] MEDS: Famotidine 20 MG Tab PO SCH (22:33)
[2017-02-26] MEDS: Docusate Sodium 100 MG Cap PO SCH (22:33)
[2017-02-27] MEDS: ceFAZolin 2 GM in Premix Bag 1 BAG IV SCH ×2 (00:57→08:46)
[2017-02-27] MEDS: Acetaminophen/oxyCODONE 325-5 MG Tab PO PRN ×4 (00:59→12:42)
[2017-02-27] MEDS: Cyclobenzaprine 10 MG Tab PO PRN ×2 (03:45→12:41)
--- NOTE | 2017-02-27 08:08 | PCM.CONSN ---
- General Info Date of Service: 02/27/17 Admission Dx/Problem (Free Text): Admission Diagnosis/Problem Admission Diagnosis/Problem Osteoarthritis of knee POD #1 Rt TKA Patient with n/v last night; resolved this morning. Pain controlled. Doing well. Functional Status: Reports: Pain Controlled, Tolerating Diet, Ambulating, Urinating, Incentive Spirometry - Review of Systems General: Reports: No Symptoms HEENT: Reports: No Symptoms Pulmonary: Reports: No Symptoms Cardiovascular: Reports: No Symptoms Gastrointestinal: Reports: No Symptoms Genitourinary: Reports: No Symptoms Musculoskeletal: Reports: Leg Pain Skin: Reports: No Symptoms Neurological: Reports: No Symptoms Psychiatric: Reports: No Symptoms - Patient Data Vitals - Most Recent: Last Vital Signs Temp 97.0 F 02/27/17 02:45 Pulse 61 02/27/17 02:45 Resp 20 02/27/17 02:45 BP 111/62 02/27/17 02:45 Pulse Ox 96 02/27/17 02:45 Weight - Most Recent: 179 lb 3.2 oz I&O - Last 24 Hours: Intake & Output 02/26/17 02/27/17 02/27/17 22:59 06:59 14:59 Intake Total 425 450 Output Total 450 650 Balance -25 -200 Lab Results Last 24 Hours: Laboratory Results - last 24 hr 02/27/17 02/27/17 Range/Units 05:28 05:28 WBC 11.51 H (3.98-10.04) K/mm3 RBC 4.03 (3.98-5.22) M/mm3 Hgb 11.9 (11.2-15.7) gm/L Hct 36.4 (34.1-44.9) % MCV 90.3 (79.4-94.8) fl MCH 29.5 (25.6-32.2) pg MCHC 32.7 (32.2-35.5) g/dl RDW Std Deviation 42.7 (36.4-46.3) fL Plt Count 197 (182-369) K/mm3 MPV 10.6 (9.4-12.3) fl Sodium 138 (136-145) mEq/L Potassium 4.1 (3.5-5.1) mEq/L Chloride 104 (98-107) mEq/L Carbon Dioxide 24 (21-32) mEq/L Anion Gap 14.1 (5-15) BUN 14 (7-18) mg/dL Creatinine 0.8 (0.55-1.02) mg/dL Est Cr Clr Drug Dosing 77.27 mL/min Estimated GFR (MDRD) > 60 (>60) mL/min BUN/Creatinine Ratio 17.5 (14-18) Glucose 164 H (74-106) mg/dL Calcium 8.7 (8.5-10.1) mg/dL Total Bilirubin 0.3 (0.2-1.0) mg/dL AST 25 (15-37) U/L ALT 44 (14-59) U/L Alkaline Phosphatase 53 (46-116) U/L Total Protein 6.2 L (6.4-8.2) g/dl Albumin 2.9 L (3.4-5.0) g/dl Globulin 3.3 gm/dL Albumin/Globulin Ratio 0.9 L (1-2) Med Orders - Current: Current Medications Bisacodyl (Dulcolax) 5 mg PO DAILY PRN PRN Reason: Constipation Cholecalciferol (Vitamin D3) 5,000 units PO DAILY [facility] Cyclobenzaprine HCl (Flexeril) 10 mg PO TID PRN PRN Reason: Spasms Last Admin: 02/27/17 03:45 Dose: 10 mg Diphenhydramine HCl (Benadryl) 25 mg IVPUSH Q6H PRN PRN Reason: pruritis Docusate Sodium (Colace) 100 mg PO BID [facility] Last Admin: 02/26/17 22:33 Dose: Not Given Famotidine (Pepcid) 20 mg PO Q12H [facility] Last Admin: 02/26/17 22:33 Dose: Not Given Folic Acid (Folic Acid) 1 mg PO DAILY [facility] Hydromorphone HCl (Dilaudid) 0.2 mg IVPUSH Q2H PRN PRN Reason: Breakthrough Pain Cefazolin Sodium/Dextrose 2 gm (/ Premix) 50 mls @ 100 mls/hr IV Q8H [facility] Stop: 02/27/17 16:29 Last Admin: 02/27/17 00:57 Dose: 100 mls/hr Ketorolac Tromethamine (Toradol) 15 mg IVPUSH Q6H PRN PRN Reason: Pain Last Admin: 02/26/17 22:20 Dose: 15 mg Magnesium Hydroxide (Milk Of Magnesia) 30 ml PO BID PRN PRN Reason: Constipation Metoclopramide HCl (Reglan) 10 mg IV ONETIME PRN PRN Reason: Nausea/Vomiting Last Admin: 02/26/17 18:51 Dose: 10 mg Miscellaneous Information (Remove Patch) 1 ea TRDERM Q72H [facility] Naloxone HCl (Narcan) 0.1 mg IVPUSH Q5M PRN PRN Reason: Oversedation Oxycodone HCl (Oxycodone) 5 mg PO Q4H PRN PRN Reason: Pain Oxycodone/Acetaminophen (Percocet 325-5 Mg) 1 - 2 tab PO Q4H PRN PRN Reason: Pain Last Admin: 02/27/17 03:45 Dose: 1 tab Rivaroxaban (Xarelto) 10 mg PO DAILY [facility] Senna (Senna) 8.6 mg PO BID PRN PRN Reason: Constipation Sodium Chloride (Saline Flush) 10 ml FLUSH ASDIRECTED PRN PRN Reason: Keep Vein Open Sumatriptan Succinate (Imitrex) 50 mg PO ASDIRECTED PRN PRN Reason: migraines Discontinued Medications Bupivacaine HCl (Marcaine 0.25%) Confirm Administered Dose 30 ml .ROUTE .STK- MED ONE Stop: 02/26/17 16:01 Last Admin: 02/26/17 17:56 Dose: 30 ml Cefazolin Sodium (Ancef) Confirm Administered Dose 2 gm .ROUTE .STK-MED ONE Stop: 02/26/17 16:00 Last Admin: 02/26/17 17:52 Dose: 2 gm Cefazolin Sodium (Ancef) Confirm Administered Dose 1 gm .ROUTE .STK-MED ONE Stop: 02/26/17 19:30 Cefazolin Sodium (Ancef) Confirm Administered Dose 1 gm .ROUTE .STK-MED ONE Stop: 02/26/17 19:30 Epinephrine HCl 0.3 mg/Cefuroxime Sodium 750 mg/Ketorolac Tromethamine 30 mg/ Sodium Chloride 28.7 ml 0 mg .XX ONETIME ONE Stop: 02/26/17 11:31 Last Admin: 02/26/17 21:17 Dose: Not Given Dexamethasone (Dexamethasone) Confirm Administered Dose 20 mg .ROUTE .STK-MED ONE Stop: 02/26/17 06:52 Diphenhydramine HCl (Benadryl) 25 mg IVPUSH Q4H PRN PRN Reason: Nausea Famotidine (Pepcid) 20 mg IVPUSH ONETIME ONE Stop: 02/26/17 19:12 Last Admin: 02/26/17 19:44 Dose: 20 mg Fentanyl (Sublimaze) Confirm Administered Dose 100 mcg .ROUTE .STK-MED ONE Stop: 02/26/17 06:52 Fentanyl (Sublimaze) 50 mcg IVPUSH ONETIME ONE Stop: 02/26/17 14:45 Last Admin: 02/26/17 14:49 Dose: 25 mcg Fentanyl (Sublimaze) 50 mcg IVPUSH Q5M PRN PRN Reason: Pain Hydromorphone HCl (Dilaudid) 0.5 mg IVPUSH Q15M PRN PRN Reason: severe pain Hydromorphone HCl (Dilaudid) Confirm Administered Dose 1 mg .ROUTE .STK-MED ONE Stop: 02/26/17 18:15 Lactated Ringer's (Ringers, Lactated) 1,000 mls @ 125 mls/hr IV ASDIRECTED [facility] Last Admin: 02/26/17 14:30 Dose: 125 mls/hr Lidocaine HCl (Xylocaine-Mpf 1%) Confirm Administered Dose 10 mls @ as directed .ROUTE .STK-MED ONE Stop: 02/26/17 06:52 Lactated Ringer's (Ringers, Lactated) Confirm Administered Dose 1,000 mls @ as directed .ROUTE .STK-MED ONE Stop: 02/26/17 06:52 Lidocaine HCl (Xylocaine-Mpf 1%) Confirm Administered Dose 2 mls @ as directed .ROUTE .STK-MED ONE Stop: 02/26/17 17:15 Lidocaine HCl (Xylocaine-Mpf 1%) Confirm Administered Dose 2 mls @ as directed .ROUTE .STK-MED ONE Stop: 02/26/17 17:15 Lidocaine HCl (Xylocaine-Mpf 1%) Confirm Administered Dose 2 mls @ as directed .ROUTE .STK-MED ONE Stop: 02/26/17 17:15 Acetaminophen (Ofirmev) 100 mls @ 400 mls/hr IV NOW ONE Stop: 02/26/17 17:35 Last Admin: 02/26/17 21:18 Dose: Not Given Iodine (Iodine 2% Mild Tincture) Confirm Administered Dose 30 ml .ROUTE .STK- MED ONE Stop: 02/26/17 16:00 Last Admin: 02/26/17 17:48 Dose: 18 ml Ketorolac Tromethamine (Toradol) Confirm Administered Dose 30 mg .ROUTE .STK- MED ONE Stop: 02/26/17 06:52 Lidocaine/Sodium Bicarbonate (Buffered Lidocaine 1% In Ns 8.4%) 0.25 ml IV ONETIME PRN PRN Reason: Prior to IV Start Last Admin: 02/26/17 10:29 Dose: 0.25 ml Midazolam HCl (Versed 1 Mg/Ml) Confirm Administered Dose 2 mg .ROUTE .STK-MED ONE Stop: 02/26/17 06:52 Midazolam HCl (Versed 1 Mg/Ml) 2 mg IVPUSH ONETIME PRN PRN Reason: Sedation Midazolam HCl (Versed 1 Mg/Ml) Confirm Administered Dose 2 mg .ROUTE .STK-MED ONE Stop: 02/26/17 18:33 Ondansetron HCl (Zofran) Confirm Administered Dose 4 mg .ROUTE .STK-MED ONE Stop: 02/26/17 06:52 Ondansetron HCl (Zofran) 4 mg IVPUSH Q6H PRN PRN Reason: Nausea/Vomiting Propofol (Diprivan 20 Ml) Confirm Administered Dose 400 mg .ROUTE .STK-MED ONE Stop: 02/26/17 06:52 Propofol (Diprivan 20 Ml) Confirm Administered Dose 200 mg .ROUTE .STK-MED ONE Stop: 02/26/17 10:12 Scopolamine (Transderm-Scop) 1.5 mg TRDERM ONETIME ONE Stop: 02/26/17 00:01 Last Admin: 02/26/17 17:36 Dose: Not Given Tranexamic Acid (Cyklokapron) Confirm Administered Dose 1,000 mg .ROUTE .STK- MED ONE Stop: 02/26/17 16:00 Last Admin: 02/26/17 18:05 Dose: 1,000 mg Vancomycin HCl (Vancomycin) Confirm Administered Dose 1 gm .ROUTE .STK-MED ONE Stop: 02/26/17 16:00 Last Admin: 02/26/17 18:01 Dose: 1 gm - Exam Quality Assessment: DVT Prophylaxis General: Alert, Oriented, Cooperative, No Acute Distress HEENT: Pupils Equal, EOMI, Mucous Membr. Moist/[place] Neck: Supple Lungs: Clear to Auscultation, Normal Respiratory Effort Cardiovascular: Regular Rate, Regular Rhythm GI/Abdominal Exam: Normal Bowel Sounds, Soft, Non-Tender (Female) Exam: Deferred Extremities: Other (José Luis wrap and ice to rt knee) Peripheral Pulses: 2+: Dorsalis Pedis (L), Dorsalis Pedis (R) Neurological: No New Focal Deficit Psy/Mental Status: Alert, Normal Affect, Normal Mood Consult PN Assessment/Plan POD#: 1 Procedures: Procedures ANTINUCLEAR ANTIBODIES (02/02/14) ASSAY OF BLOOD/URIC ACID (02/02/14) ASSAY THYROID STIM HORMONE (02/02/14) C-REACTIVE PROTEIN (11/27/16) CCP ANTIBODY (05/12/14) COMP SCREEN MAMMOGRAM ADD-ON (11/25/14) COMPLETE CBC AUTOMATED (11/27/16) COMPLETE CBC W/AUTO DIFF WBC (02/02/14) COMPREHEN METABOLIC PANEL (11/27/16) COMPUTER DX MAMMOGRAM ADD-ON (04/22/14) CORRECTION HALLUX VALGUS (11/07/16) CT ABD & PELVIS W/O CONTRAST (11/03/13) CT HEAD/BRAIN W/O DYE (08/29/16) EMERGENCY DEPT VISIT (08/29/16) EMERGENCY DEPT VISIT (04/16/14) EMERGENCY DEPT VISIT (11/03/13) FLUOROSCOPE EXAMINATION (11/07/16) HEPATITIS B SURFACE AG IA (05/12/14) HEPATITIS C AB TEST (05/12/14) HYDRATE IV INFUSION ADD-ON (08/29/16) LIPID PANEL (11/03/13) MR-STAPH DNA AMP PROBE (02/11/17) NUCLEAR ANTIGEN ANTIBODY (05/12/14) PART REMOVAL OF METATARSAL (11/07/16) PARVOVIRUS ANTIBODY (05/12/14) RBC SED RATE AUTOMATED (02/02/14) REPAIR OF HAMMERTOE (11/07/16) RHEUMATOID FACTOR TEST QUAL (02/02/14) ROUTINE VENIPUNCTURE (11/27/16) THER/PROPH/DIAG INJ IV PUSH (08/29/16) THER/PROPH/DIAG INJ SC/IM (02/02/14) TRANSVAGINAL US NON-OB (11/03/13) TX/PRO/DX INJ NEW DRUG ADDON (08/29/16) ULTRASOUND BREAST COMPLETE (04/22/14) URINALYSIS AUTO W/SCOPE (11/03/13) US EXAM ABDOM COMPLETE (11/04/13) US EXAM BREAST(S) (11/04/13) X-RAY EXAM OF ABDOMEN (11/03/13) X-RAY EXAM OF HAND (05/13/14) X-RAY EXAM OF KNEE 3 (04/16/14) X-RAY EXAM OF WRIST (09/13/14) (1) S/P total knee arthroplasty SNOMED Code(s): 0121809332510, 7620356075526 Code(s): Z96.659 - PRESENCE OF UNSPECIFIED ARTIFICIAL KNEE JOINT Priority: High Current Visit: Yes Qualifiers: Laterality: right Qualified Code(s): Z96.651 - Presence of right artificial knee joint (2) Osteoarthritis SNOMED Code(s): 310035247 Code(s): M19.90 - UNSPECIFIED OSTEOARTHRITIS, UNSPECIFIED SITE Priority: High Current Visit: Yes Qualifiers: Osteoarthritis location: knee Osteoarthritis type: primary Laterality: right Qualified Code(s): M17.11 - Unilateral primary osteoarthritis, right knee (3) Rheumatoid arthritis SNOMED Code(s): 33208235 Code(s): M06.9 - RHEUMATOID ARTHRITIS, UNSPECIFIED Priority: Medium Current Visit: No Qualifiers: Rheumatoid arthritis location: unspecified site Rheumatoid factor presence : unspecified presence Qualified Code(s): M06.9 - Rheumatoid arthritis, unspecified (4) Sinus bradycardia SNOMED Code(s): 08217149 Code(s): R00.1 - BRADYCARDIA, UNSPECIFIED Priority: Medium Current Visit : Yes (5) Anxiety and depression SNOMED Code(s): 369583262 Code(s): F41.8 - OTHER SPECIFIED ANXIETY DISORDERS Priority: Medium Current Visit: No Problem List Initiated/Reviewed/Updated: Yes Plan: I/P: S/P Rt total knee arthroplasty, POD # 1, Dr. Castaneda - Pain management and DVT prophylax per primary team - PT/OT - RT/IS - VSS - Follow am labs/hgb---Hgb 11.9 Chronic conditions: Rheumatoid arthritis; hold methotrexate and Humira Anxiety/depression, continue home meds History of migraine headaches history of hepatitis A as a teenager/resolved History of renal stones Former smoker Other: GI Prophylax CM/SW for DC planning--OK from Hospitalist standpoint for DC home today. Patient is full Code status. PCP is Martina Landry PA-C with [facility] in [place]
[2017-02-27] MEDS: Ketorolac 15 MG/ML SDV IVPUSH PRN (08:39)
[2017-02-27] MEDS: Famotidine 20 MG Tab PO SCH (08:47)
[2017-02-27] MEDS: Docusate Sodium 100 MG Cap PO SCH ×2 (08:47→08:54)
[2017-02-27] MEDS ORDERED: Rivaroxaban 10 MG Tab PO SCH (09:00)
[2017-02-27] MEDS ORDERED: Cholecalciferol (Vitamin D3) 1,000 Unit Tab PO SCH (09:00)
[2017-02-27] MEDS ORDERED: Folic Acid 1 MG Tab PO SCH (09:00)
--- NOTE | 2017-02-27 11:52 | PCM.SURGPN ---
- General Info Date of Service: 02/27/17 POD#: 1 Functional Status: Reports: Pain Controlled, Tolerating Diet, Ambulating, Urinating, Incentive Spirometry - Review of Systems Musculoskeletal: Reports: Other (The pt has met inpatient therapy goals.) - Patient Data Vitals - Most Recent: Last Vital Signs Temp 97.5 F 02/27/17 07:41 Pulse 69 02/27/17 07:41 Resp 18 02/27/17 07:41 BP 116/69 02/27/17 07:41 Pulse Ox 98 02/27/17 07:41 Weight - Most Recent: 179 lb 3.2 oz I&O - Last 24 Hours: Intake & Output 02/26/17 02/27/17 02/27/17 22:59 06:59 14:59 Intake Total 425 450 Output Total 450 650 Balance -25 -200 Lab Results Last 24 Hrs: Laboratory Results - last 24 hr 02/27/17 02/27/17 Range/Units 05:28 05:28 WBC 11.51 H (3.98-10.04) K/mm3 RBC 4.03 (3.98-5.22) M/mm3 Hgb 11.9 (11.2-15.7) gm/L Hct 36.4 (34.1-44.9) % MCV 90.3 (79.4-94.8) fl MCH 29.5 (25.6-32.2) pg MCHC 32.7 (32.2-35.5) g/dl RDW Std Deviation 42.7 (36.4-46.3) fL Plt Count 197 (182-369) K/mm3 MPV 10.6 (9.4-12.3) fl Sodium 138 (136-145) mEq/L Potassium 4.1 (3.5-5.1) mEq/L Chloride 104 (98-107) mEq/L Carbon Dioxide 24 (21-32) mEq/L Anion Gap 14.1 (5-15) BUN 14 (7-18) mg/dL Creatinine 0.8 (0.55-1.02) mg/dL Est Cr Clr Drug Dosing 77.27 mL/min Estimated GFR (MDRD) > 60 (>60) mL/min BUN/Creatinine Ratio 17.5 (14-18) Glucose 164 H (74-106) mg/dL Calcium 8.7 (8.5-10.1) mg/dL Total Bilirubin 0.3 (0.2-1.0) mg/dL AST 25 (15-37) U/L ALT 44 (14-59) U/L Alkaline Phosphatase 53 (46-116) U/L Total Protein 6.2 L (6.4-8.2) g/dl Albumin 2.9 L (3.4-5.0) g/dl Globulin 3.3 gm/dL Albumin/Globulin Ratio 0.9 L (1-2) Med Orders - Current: Current Medications Bisacodyl (Dulcolax) 5 mg PO DAILY PRN PRN Reason: Constipation Cholecalciferol (Vitamin D3) 5,000 units PO DAILY [facility] Last Admin: 02/27/17 08:47 Dose: 5,000 units Cyclobenzaprine HCl (Flexeril) 10 mg PO TID PRN PRN Reason: Spasms Last Admin: 02/27/17 03:45 Dose: 10 mg Diphenhydramine HCl (Benadryl) 25 mg IVPUSH Q6H PRN PRN Reason: pruritis Docusate Sodium (Colace) 100 mg PO BID [facility] Last Admin: 02/27/17 08:54 Dose: Not Given Famotidine (Pepcid) 20 mg PO Q12H [facility] Last Admin: 02/27/17 08:47 Dose: 20 mg Folic Acid (Folic Acid) 1 mg PO DAILY [facility] Last Admin: 02/27/17 08:47 Dose: 1 mg Hydromorphone HCl (Dilaudid) 0.2 mg IVPUSH Q2H PRN PRN Reason: Breakthrough Pain Cefazolin Sodium/Dextrose 2 gm (/ Premix) 50 mls @ 100 mls/hr IV Q8H [facility] Stop: 02/27/17 16:29 Last Admin: 02/27/17 08:46 Dose: 100 mls/hr Ketorolac Tromethamine (Toradol) 15 mg IVPUSH Q6H PRN PRN Reason: Pain Last Admin: 02/27/17 08:39 Dose: 15 mg Magnesium Hydroxide (Milk Of Magnesia) 30 ml PO BID PRN PRN Reason: Constipation Metoclopramide HCl (Reglan) 10 mg IV ONETIME PRN PRN Reason: Nausea/Vomiting Last Admin: 02/26/17 18:51 Dose: 10 mg Miscellaneous Information (Remove Patch) 1 ea TRDERM Q72H [facility] Naloxone HCl (Narcan) 0.1 mg IVPUSH Q5M PRN PRN Reason: Oversedation Oxycodone HCl (Oxycodone) 5 mg PO Q4H PRN PRN Reason: Pain Oxycodone/Acetaminophen (Percocet 325-5 Mg) 1 - 2 tab PO Q4H PRN PRN Reason: Pain Last Admin: 02/27/17 08:46 Dose: 1 tab Rivaroxaban (Xarelto) 10 mg PO DAILY [facility] Last Admin: 02/27/17 08:47 Dose: 10 mg Senna (Senna) 8.6 mg PO BID PRN PRN Reason: Constipation Sodium Chloride (Saline Flush) 10 ml FLUSH ASDIRECTED PRN PRN Reason: Keep Vein Open Sumatriptan Succinate (Imitrex) 50 mg PO ASDIRECTED PRN PRN Reason: migraines Discontinued Medications Bupivacaine HCl (Marcaine 0.25%) Confirm Administered Dose 30 ml .ROUTE .STK- MED ONE Stop: 02/26/17 16:01 Last Admin: 02/26/17 17:56 Dose: 30 ml Cefazolin Sodium (Ancef) Confirm Administered Dose 2 gm .ROUTE .STK-MED ONE Stop: 02/26/17 16:00 Last Admin: 02/26/17 17:52 Dose: 2 gm Cefazolin Sodium (Ancef) Confirm Administered Dose 1 gm .ROUTE .STK-MED ONE Stop: 02/26/17 19:30 Cefazolin Sodium (Ancef) Confirm Administered Dose 1 gm .ROUTE .STK-MED ONE Stop: 02/26/17 19:30 Epinephrine HCl 0.3 mg/Cefuroxime Sodium 750 mg/Ketorolac Tromethamine 30 mg/ Sodium Chloride 28.7 ml 0 mg .XX ONETIME ONE Stop: 02/26/17 11:31 Last Admin: 02/26/17 21:17 Dose: Not Given Dexamethasone (Dexamethasone) Confirm Administered Dose 20 mg .ROUTE .STK-MED ONE Stop: 02/26/17 06:52 Diphenhydramine HCl (Benadryl) 25 mg IVPUSH Q4H PRN PRN Reason: Nausea Famotidine (Pepcid) 20 mg IVPUSH ONETIME ONE Stop: 02/26/17 19:12 Last Admin: 02/26/17 19:44 Dose: 20 mg Fentanyl (Sublimaze) Confirm Administered Dose 100 mcg .ROUTE .STK-MED ONE Stop: 02/26/17 06:52 Fentanyl (Sublimaze) 50 mcg IVPUSH ONETIME ONE Stop: 02/26/17 14:45 Last Admin: 02/26/17 14:49 Dose: 25 mcg Fentanyl (Sublimaze) 50 mcg IVPUSH Q5M PRN PRN Reason: Pain Hydromorphone HCl (Dilaudid) 0.5 mg IVPUSH Q15M PRN PRN Reason: severe pain Hydromorphone HCl (Dilaudid) Confirm Administered Dose 1 mg .ROUTE .STK-MED ONE Stop: 02/26/17 18:15 Lactated Ringer's (Ringers, Lactated) 1,000 mls @ 125 mls/hr IV ASDIRECTED [facility] Last Admin: 02/26/17 14:30 Dose: 125 mls/hr Lidocaine HCl (Xylocaine-Mpf 1%) Confirm Administered Dose 10 mls @ as directed .ROUTE .STK-MED ONE Stop: 02/26/17 06:52 Lactated Ringer's (Ringers, Lactated) Confirm Administered Dose 1,000 mls @ as directed .ROUTE .STK-MED ONE Stop: 02/26/17 06:52 Lidocaine HCl (Xylocaine-Mpf 1%) Confirm Administered Dose 2 mls @ as directed .ROUTE .STK-MED ONE Stop: 02/26/17 17:15 Lidocaine HCl (Xylocaine-Mpf 1%) Confirm Administered Dose 2 mls @ as directed .ROUTE .STK-MED ONE Stop: 02/26/17 17:15 Lidocaine HCl (Xylocaine-Mpf 1%) Confirm Administered Dose 2 mls @ as directed .ROUTE .STK-MED ONE Stop: 02/26/17 17:15 Acetaminophen (Ofirmev) 100 mls @ 400 mls/hr IV NOW ONE Stop: 02/26/17 17:35 Last Admin: 02/26/17 21:18 Dose: Not Given Iodine (Iodine 2% Mild Tincture) Confirm Administered Dose 30 ml .ROUTE .STK- MED ONE Stop: 02/26/17 16:00 Last Admin: 12/13/17 17:48 Dose: 18 ml Ketorolac Tromethamine (Toradol) Confirm Administered Dose 30 mg .ROUTE .STK- MED ONE Stop: 02/26/17 06:52 Lidocaine/Sodium Bicarbonate (Buffered Lidocaine 1% In Ns 8.4%) 0.25 ml IV ONETIME PRN PRN Reason: Prior to IV Start Last Admin: 02/26/17 10:29 Dose: 0.25 ml Midazolam HCl (Versed 1 Mg/Ml) Confirm Administered Dose 2 mg .ROUTE .STK-MED ONE Stop: 02/26/17 06:52 Midazolam HCl (Versed 1 Mg/Ml) 2 mg IVPUSH ONETIME PRN PRN Reason: Sedation Midazolam HCl (Versed 1 Mg/Ml) Confirm Administered Dose 2 mg .ROUTE .STK-MED ONE Stop: 02/26/17 18:33 Ondansetron HCl (Zofran) Confirm Administered Dose 4 mg .ROUTE .STK-MED ONE Stop: 02/26/17 06:52 Ondansetron HCl (Zofran) 4 mg IVPUSH Q6H PRN PRN Reason: Nausea/Vomiting Propofol (Diprivan 20 Ml) Confirm Administered Dose 400 mg .ROUTE .STK-MED ONE Stop: 02/26/17 06:52 Propofol (Diprivan 20 Ml) Confirm Administered Dose 200 mg .ROUTE .STK-MED ONE Stop: 02/26/17 10:12 Scopolamine (Transderm-Scop) 1.5 mg TRDERM ONETIME ONE Stop: 02/26/17 00:01 Last Admin: 02/26/17 17:36 Dose: Not Given Tranexamic Acid (Cyklokapron) Confirm Administered Dose 1,000 mg .ROUTE .STK- MED ONE Stop: 02/26/17 16:00 Last Admin: 02/26/17 18:05 Dose: 1,000 mg Vancomycin HCl (Vancomycin) Confirm Administered Dose 1 gm .ROUTE .STK-MED ONE Stop: 02/26/17 16:00 Last Admin: 02/26/17 18:01 Dose: 1 gm - Exam Wound/Incisions: Dressing Dry and Intact General: Alert, Cooperative, No Acute Distress Lungs: Normal Respiratory Effort Extremities: Other (NVS intact. Independent SLR RLJoe.) - Problem List Review Problem List Initiated/Reviewed/Updated: Yes - My Orders Last 24 Hours: Active Orders 24 hr Category Date Time Status Cooling Warming Measures [RC] ASDIRECTED Care 02/26/17 17:15 Inactive Notify Provider [RC] ASDIRECTED Care 02/26/17 17:15 Active Pulse Oximetry [RC] ASDIRECTED Care 02/26/17 17:15 Active Ready for Discharge [RC] ASDIRECTED Care 02/27/17 11:33 Active Vital Signs [RC] Q15M Care 02/26/17 17:15 Inactive Regular Diet [DIET] Diet 02/26/17 Lunch Active Cholecalciferol (Vitamin D3) [Vitamin D3] Med 02/27/17 09:00 Active 5,000 units PO DAILY Docusate Sodium [Colace] Med 02/26/17 21:00 Active 100 mg PO BID Famotidine [Pepcid] Med 02/26/17 21:00 Active 20 mg PO Q12H Folic Acid Med 02/27/17 09:00 Active 1 mg PO DAILY HYDROmorphone [Dilaudid] Med 02/26/17 12:00 Active 0.2 mg IVPUSH Q2H PRN Metoclopramide [Reglan] Med 02/26/17 17:15 Active 10 mg IV ONETIME PRN Remove Patch Med 02/27/17 22:00 Active 1 ea TRDERM Q72H Rivaroxaban [Xarelto] Med 02/27/17 09:00 Active 10 mg PO DAILY SUMAtriptan [Imitrex] Med 02/26/17 18:38 Active 50 mg PO ASDIRECTED PRN ceFAZolin [Ancef] 2 gm Med 02/27/17 00:00 Active Premix Bag 1 bag IV Q8H diphenhydrAMINE [Benadryl] Med 02/26/17 17:15 Active 25 mg IVPUSH Q6H PRN oxyCODONE Med 02/26/17 19:50 Active 5 mg PO Q4H PRN EKG 12 Lead [EK] Routine Ther 02/26/17 19:11 Ordered Medication Orders Bisacodyl (Dulcolax) 5 mg PO DAILY PRN PRN Reason: Constipation Cholecalciferol (Vitamin D3) 5,000 units PO DAILY [facility] Last Admin: 02/27/17 08:47 Dose: 5,000 units Cyclobenzaprine HCl (Flexeril) 10 mg PO TID PRN PRN Reason: Spasms Last Admin: 02/27/17 03:45 Dose: 10 mg Diphenhydramine HCl (Benadryl) 25 mg IVPUSH Q6H PRN PRN Reason: pruritis Docusate Sodium (Colace) 100 mg PO BID [facility] Last Admin: 02/27/17 08:54 Dose: Not Given Admin: 02/26/17 22:33 Dose: Not Given Famotidine (Pepcid) 20 mg PO Q12H [facility] Last Admin: 02/27/17 08:47 Dose: 20 mg Admin: 02/26/17 22:33 Dose: Not Given Folic Acid (Folic Acid) 1 mg PO DAILY [facility] Last Admin: 02/27/17 08:47 Dose: 1 mg Hydromorphone HCl (Dilaudid) 0.2 mg IVPUSH Q2H PRN PRN Reason: Breakthrough Pain Cefazolin Sodium/Dextrose 2 gm (/ Premix) 50 mls @ 100 mls/hr IV Q8H [facility] Stop: 02/27/17 16:29 Last Admin: 02/27/17 08:46 Dose: 100 mls/hr Infusion: 02/27/17 01:27 Dose: 100 mls/hr Admin: 02/27/17 00:57 Dose: 100 mls/hr Ketorolac Tromethamine (Toradol) 15 mg IVPUSH Q6H PRN PRN Reason: Pain Last Admin: 02/27/17 08:39 Dose: 15 mg Admin: 02/26/17 22:20 Dose: 15 mg Magnesium Hydroxide (Milk Of Magnesia) 30 ml PO BID PRN PRN Reason: Constipation Metoclopramide HCl (Reglan) 10 mg IV ONETIME PRN PRN Reason: Nausea/Vomiting Last Admin: 02/26/17 18:51 Dose: 10 mg Miscellaneous Information (Remove Patch) 1 ea TRDERM Q72H [facility] Naloxone HCl (Narcan) 0.1 mg IVPUSH Q5M PRN PRN Reason: Oversedation Oxycodone HCl (Oxycodone) 5 mg PO Q4H PRN PRN Reason: Pain Oxycodone/Acetaminophen (Percocet 325-5 Mg) 1 - 2 tab PO Q4H PRN PRN Reason: Pain Last Admin: 02/27/17 08:46 Dose: 1 tab Admin: 02/27/17 03:45 Dose: 1 tab Admin: 02/27/17 00:59 Dose: 1 tab Admin: 02/26/17 22:22 Dose: 1 tab Rivaroxaban (Xarelto) 10 mg PO DAILY [facility] Last Admin: 02/27/17 08:47 Dose: 10 mg Senna (Senna) 8.6 mg PO BID PRN PRN Reason: Constipation Sodium Chloride (Saline Flush) 10 ml FLUSH ASDIRECTED PRN PRN Reason: Keep Vein Open Sumatriptan Succinate (Imitrex) 50 mg PO ASDIRECTED PRN PRN Reason: migraines - Assessment Assessment (Free Text/Narrative):: POD#1 - right TKA - Plan Plan (Free Text/Narrative):: 1. Xarelto, TEDs, frequent mobility. 2. Hgb 11.9. 3. Outpatient therapy. 4. Discharge to home today. The pt's case was discussed with Dr. Suero.
[2017-02-27 12:17] VITALS: BP 105/53
--- NOTE | 2017-02-28 15:52 | PCM.DCSUM1 ---
Discharge Summary - Hospital Course Brief History: Denisse is a 57 yo female who underwent right TKA with Dr. Suero on 02-26-2017. The procedure was completed under spinal anesthesia. The pt tolerated the procedure well and was admitted to the Medical-Surgical Unit. Medical management was provided by the Hospitalist service. The pt's Hospital course was uneventful. The pt's Hgb on POD#1 was 11.9. On POD#1, Xarelto 10mg daily was initiated for VTE prophylaxis. SCDs and TEDs were also ordered. A Mepilex dressing was placed at the incision site at the time of surgery and remained clean and dry. The pt participated in P.T. and O.T. and progressed well. The pt was allowed to WBAT. On POD#1, the pt was deemed appropriate to discharge to home with her family. - Discharge Data Discharge Date: 02/27/17 Discharge Disposition: Home, Self-Care 01 Condition: Good - Patient Summary/Data Consults: Consultations 02/26/17 09:23 Consult to Physician [CONS] Routine OT Evaluation and Treatment [CONS] Routine 02/26/17 09:27 PT Evaluation and Treatment [CONS] Routine - Patient Instructions Diet: Usual Diet as Tolerated Activity: Apply Ice, As Tolerated, Elevate Extremity, Full Weight Bearing Driving: Do Not Drive Showering/Bathing: May Shower Wound/Incision Care: Keep Operative Site/Wound Site Clean and Dry, Do NOT Change Dressing Notify Provider of: Fever, Increased Pain, Swelling and Redness, Drainage, Nausea and/or Vomiting Other/Special Instructions: Please get up and moving around every hour while awake. This helps to prevent blood clots. Please use your walker and have help as needed. Take the blood thinner medication Xarelto daily as directed. Do the exercises you were taught in the Hospital. Schedule for P.T. Use the pain medication as needed. The medication may cause drowsiness and constipation. Contact your primary care provider for instructions if you are constipated. You may use a stool softener like docusate sodium or Colace 100mg twice daily and/or a laxative like Miralax daily for constipation. Use the ice machine often. Elevate the limb to decrease swelling. Keep the Mepilex dressing in place until follow-up at the Clinic. Notify the Clinic if the dressing is saturated. Wear the GABY hose during the day and you may remove these at night. Eat a diet high in protein as this well help with healing. Schedule an appointment with your primary care provider for 'routine post-op care'. Call the Clinic with questions or concerns - [phone]. PLEASE TALK TO YOUR SCHOOL LIBRARIAN - about the use of Humira and methotrexate. Normally, the Humira is not restarted until 6 wks after surgery and please discuss this with your Tier Lift Truck Operator. - Discharge Plan Prescriptions/Med Rec: Acetaminophen/oxyCODONE [Percocet 325-5 MG] 1 - 2 tab PO Q4H PRN #60 tablet PRN Reason: Pain Cyclobenzaprine [Flexeril] 10 mg PO TID PRN #40 tablet PRN Reason: Spasms Rivaroxaban [Xarelto] 10 mg PO DAILY #40 tablet Home Medications: Home Meds Adalimumab [Humira] 40 mg SQ Q14D 08/29/16 [History] Folic Acid 1 mg PO DAILY 08/29/16 [History] Methotrexate Sodium [Methotrexate] 15 mg PO WEEKLY 11/06/16 [History] SUMAtriptan Succinate [Imitrex] 50 mg PO ASDIRECTED PRN 11/06/16 [History] Ca Carbonate/Vitamin D3/Vit K [Calcium + D Soft Chewable Tab] 1 tab PO DAILY 03/02 [History] Cholecalciferol (Vitamin D3) [Vitamin D3] 5,000 units PO DAILY 02/26/17 [History ] Acetaminophen/oxyCODONE [Percocet 325-5 MG] 1 - 2 tab PO Q4H PRN #60 tablet [Rx] Cyclobenzaprine [Flexeril] 10 mg PO TID PRN #40 tablet 02/27/17 [Rx] Docusate Sodium [Colace] 100 mg PO BID cap 02/27/17 [Rx] Famotidine [Pepcid] 20 mg PO Q12H tablet 02/27/17 [Rx] Rivaroxaban [Xarelto] 10 mg PO DAILY #40 tablet 02/27/17 [Rx] Patient Handouts: Total Knee Replacement, Care After, [id number], Total Knee Replacement, [id number] Referrals: Mariely Kaye PA-C [Physician [employer]hole Sewer] - 03/05/17 8:15 am (You have a follow up apt. with Mariely Kaye on at 0815, and on at 0830.) - Patient Data Vitals - Most Recent: Last Vital Signs Temp 97.5 F 02/27/17 12:12 Pulse 65 02/27/17 12:12 Resp 18 02/27/17 12:12 BP 105/53 L 02/27/17 12:12 Pulse Ox 97 02/27/17 12:12 Weight - Most Recent: 179 lb 3.2 oz Med Orders - Current: Current Medications Discontinued Medications Bisacodyl (Dulcolax) 5 mg PO DAILY PRN PRN Reason: Constipation Bupivacaine HCl (Marcaine 0.25%) Confirm Administered Dose 30 ml .ROUTE .STK- MED ONE Stop: 02/26/17 16:01 Last Admin: 02/26/17 17:56 Dose: 30 ml Cefazolin Sodium (Ancef) Confirm Administered Dose 2 gm .ROUTE .STK-MED ONE Stop: 02/26/17 16:00 Last Admin: 02/26/17 17:52 Dose: 2 gm Cefazolin Sodium (Ancef) Confirm Administered Dose 1 gm .ROUTE .STK-MED ONE Stop: 02/26/17 19:30 Cefazolin Sodium (Ancef) Confirm Administered Dose 1 gm .ROUTE .STK-MED ONE Stop: 02/26/17 19:30 Cholecalciferol (Vitamin D3) 5,000 units PO DAILY [facility] Last Admin: 02/27/17 08:47 Dose: 5,000 units Epinephrine HCl 0.3 mg/Cefuroxime Sodium 750 mg/Ketorolac Tromethamine 30 mg/ Sodium Chloride 28.7 ml 0 mg .XX ONETIME ONE Stop: 02/26/17 11:31 Last Admin: 02/26/17 21:17 Dose: Not Given Cyclobenzaprine HCl (Flexeril) 10 mg PO TID PRN PRN Reason: Spasms Last Admin: 02/27/17 12:41 Dose: 10 mg Dexamethasone (Dexamethasone) Confirm Administered Dose 20 mg .ROUTE .STK-MED ONE Stop: 02/26/17 06:52 Diphenhydramine HCl (Benadryl) 25 mg IVPUSH Q4H PRN PRN Reason: Nausea Diphenhydramine HCl (Benadryl) 25 mg IVPUSH Q6H PRN PRN Reason: pruritis Docusate Sodium (Colace) 100 mg PO BID [facility] Last Admin: 02/27/17 08:54 Dose: Not Given Famotidine (Pepcid) 20 mg PO Q12H [facility] Last Admin: 02/27/17 08:47 Dose: 20 mg Famotidine (Pepcid) 20 mg IVPUSH ONETIME ONE Stop: 02/26/17 19:12 Last Admin: 02/26/17 19:44 Dose: 20 mg Fentanyl (Sublimaze) Confirm Administered Dose 100 mcg .ROUTE .STK-MED ONE Stop: 02/26/17 06:52 Fentanyl (Sublimaze) 50 mcg IVPUSH ONETIME ONE Stop: 02/26/17 14:45 Last Admin: 02/26/17 14:49 Dose: 25 mcg Fentanyl (Sublimaze) 50 mcg IVPUSH Q5M PRN PRN Reason: Pain Folic Acid (Folic Acid) 1 mg PO DAILY [facility] Last Admin: 02/27/17 08:47 Dose: 1 mg Hydromorphone HCl (Dilaudid) 0.2 mg IVPUSH Q2H PRN PRN Reason: Breakthrough Pain Hydromorphone HCl (Dilaudid) 0.5 mg IVPUSH Q15M PRN PRN Reason: severe pain Hydromorphone HCl (Dilaudid) Confirm Administered Dose 1 mg .ROUTE .STK-MED ONE Stop: 02/26/17 18:15 Lactated Ringer's (Ringers, Lactated) 1,000 mls @ 125 mls/hr IV ASDIRECTED [facility] Last Admin: 02/26/17 14:30 Dose: 125 mls/hr Lidocaine HCl (Xylocaine-Mpf 1%) Confirm Administered Dose 10 mls @ as directed .ROUTE .STK-MED ONE Stop: 02/26/17 06:52 Lactated Ringer's (Ringers, Lactated) Confirm Administered Dose 1,000 mls @ as directed .ROUTE .STK-MED ONE Stop: 02/26/17 06:52 Cefazolin Sodium/Dextrose 2 gm (/ Premix) 50 mls @ 100 mls/hr IV Q8H [facility] Stop: 02/27/17 16:29 Last Admin: 02/27/17 08:46 Dose: 100 mls/hr Lidocaine HCl (Xylocaine-Mpf 1%) Confirm Administered Dose 2 mls @ as directed .ROUTE .STK-MED ONE Stop: 02/26/17 17:15 Lidocaine HCl (Xylocaine-Mpf 1%) Confirm Administered Dose 2 mls @ as directed .ROUTE .STK-MED ONE Stop: 02/26/17 17:15 Lidocaine HCl (Xylocaine-Mpf 1%) Confirm Administered Dose 2 mls @ as directed .ROUTE .STK-MED ONE Stop: 02/26/17 17:15 Acetaminophen (Ofirmev) 100 mls @ 400 mls/hr IV NOW ONE Stop: 02/26/17 17:35 Last Admin: 02/26/17 21:18 Dose: Not Given Iodine (Iodine 2% Mild Tincture) Confirm Administered Dose 30 ml .ROUTE .STK- MED ONE Stop: 02/26/17 16:00 Last Admin: 02/26/17 17:48 Dose: 18 ml Ketorolac Tromethamine (Toradol) Confirm Administered Dose 30 mg .ROUTE .STK- MED ONE Stop: 02/26/17 06:52 Ketorolac Tromethamine (Toradol) 15 mg IVPUSH Q6H PRN PRN Reason: Pain Last Admin: 02/27/17 08:39 Dose: 15 mg Lidocaine/Sodium Bicarbonate (Buffered Lidocaine 1% In Ns 8.4%) 0.25 ml IV ONETIME PRN PRN Reason: Prior to IV Start Last Admin: 02/26/17 10:29 Dose: 0.25 ml Magnesium Hydroxide (Milk Of Magnesia) 30 ml PO BID PRN PRN Reason: Constipation Metoclopramide HCl (Reglan) 10 mg IV ONETIME PRN PRN Reason: Nausea/Vomiting Last Admin: 02/26/17 18:51 Dose: 10 mg Midazolam HCl (Versed 1 Mg/Ml) Confirm Administered Dose 2 mg .ROUTE .STK-MED ONE Stop: 02/26/17 06:52 Midazolam HCl (Versed 1 Mg/Ml) 2 mg IVPUSH ONETIME PRN PRN Reason: Sedation Midazolam HCl (Versed 1 Mg/Ml) Confirm Administered Dose 2 mg .ROUTE .STK-MED ONE Stop: 02/26/17 18:33 Miscellaneous Information (Remove Patch) 1 ea TRDERM Q72H [facility] Naloxone HCl (Narcan) 0.1 mg IVPUSH Q5M PRN PRN Reason: Oversedation Ondansetron HCl (Zofran) Confirm Administered Dose 4 mg .ROUTE .STK-MED ONE Stop: 02/26/17 06:52 Ondansetron HCl (Zofran) 4 mg IVPUSH Q6H PRN PRN Reason: Nausea/Vomiting Oxycodone HCl (Oxycodone) 5 mg PO Q4H PRN PRN Reason: Pain Oxycodone/Acetaminophen (Percocet 325-5 Mg) 1 - 2 tab PO Q4H PRN PRN Reason: Pain Last Admin: 02/27/17 12:42 Dose: 1 tab Propofol (Diprivan 20 Ml) Confirm Administered Dose 400 mg .ROUTE .STK-MED ONE Stop: 02/26/17 06:52 Propofol (Diprivan 20 Ml) Confirm Administered Dose 200 mg .ROUTE .STK-MED ONE Stop: 02/26/17 10:12 Rivaroxaban (Xarelto) 10 mg PO DAILY [facility] Last Admin: 02/27/17 08:47 Dose: 10 mg Scopolamine (Transderm-Scop) 1.5 mg TRDERM ONETIME ONE Stop: 02/26/17 00:01 Last Admin: 02/26/17 17:36 Dose: Not Given Senna (Senna) 8.6 mg PO BID PRN PRN Reason: Constipation Sodium Chloride (Saline Flush) 10 ml FLUSH ASDIRECTED PRN PRN Reason: Keep Vein Open Sumatriptan Succinate (Imitrex) 50 mg PO ASDIRECTED PRN PRN Reason: migraines Tranexamic Acid (Cyklokapron) Confirm Administered Dose 1,000 mg .ROUTE .STK- MED ONE Stop: 02/26/17 16:00 Last Admin: 02/26/17 18:05 Dose: 1,000 mg Vancomycin HCl (Vancomycin) Confirm Administered Dose 1 gm .ROUTE .STK-MED ONE Stop: 02/26/17 16:00 Last Admin: 02/26/17 18:01 Dose: 1 gm *Q Meaningful Use (DIS) - VTE *Q VTE Criteria *Q: - Stroke *Q Stroke Criteria *Q: - AMI *Q AMI Criteria *Q:
--- NOTE | 2017-03-05 07:16 | PCM.OPNOTE ---
- General Post-Op/Procedure Note Date of Surgery/Procedure: 02/26/17 Operative Procedure(s): right total knee arthroplasty Pre Op Diagnosis: right knee osteoarthrosis Post-Op Diagnosis: Same Anesthesia Technique: Local, MAC, Spinal Primary Surgeon: Darwin Suero Anesthesia Provider: Skye Meraz Batting Machine Operator: Mariely Kaye Batting Machine Operator: Dorcas Olivarez EBCitlalli in mLs: 10 Complications: None Condition: Good
--- NOTE | 2017-03-05 08:52 | OR ---
DATE OF OPERATION: 02/26/2017 SURGEON: Darwin Suero MD OPERATION PERFORMED: Right total knee arthroplasty. PREOPERATIVE DIAGNOSIS: Right knee osteoarthrosis. POSTOPERATIVE DIAGNOSIS: Right knee osteoarthrosis. ANESTHESIA: Local MAC with spinal. ANESTHESIA PROVIDER: Skye Meraz CRNA. ASSISTANTS: Mariely Kaye PA-C and Dorcas Olivarez LPN. ESTIMATED BLOOD LOSS: 10 mL. COMPLICATIONS: None. CONDITION: Stable. IMPLANTS: 1. Kaci size 5 PS femur. 2. Kaci size 4 [place] tibial baseplate. 3. Alborn size 4, 11 mm PS X3 polyethylene. 4. Alborn 29 x 9 mm asymmetric patella. DESCRIPTION OF PROCEDURE: The patient was identified in the preop holding area. Proper site was marked and identified by the surgeon. The patient was taken back to the operating theater. After adequate anesthesia, the patient's right lower extremity had a nonsterile tourniquet applied and it was then sterilely prepped and draped in the usual sterile fashion. OR timeout was performed. The patient received 2 g IV Ancef. At this time, right lower extremity was exsanguinated. Tourniquet was insufflated to 300 mmHg. Standard medial parapatellar incision was made. Medial parapatellar arthrotomy was created. Deep fibers of the MCL were raised and anterior fat pad was resected. At this time, attention was turned to the patella. Patella measured a 21, it was resected to a 13 for a 29 x 9 mm patella and then 8 mm was resected off the distal femur. Drill holes were then drilled and found to be in adequate position. The drill was then drilled in the distal femur and the intramedullary distal femoral cutting guide was then placed. 8 mm was resected off the distal femur and was found to be an adequate resection. Sizing guide was placed. It was found to be a size 5 femur that was shown on the implant record at the beginning of this dictation. The drill holes were drilled for the epicondylar axis using Whitesides line and epicondyles as reference. At this time, the 4-in-1 cutting block was placed. An anterior posterior and anterior and posterior chamfer cuts were then completed. The correct size box cut was then placed and the box cut was completed and found to be an adequate resection. Attention was turned to the tibia. The posterior medial lateral retractors were placed. The extramedullary tibial guide was placed. It was placed in the old footprint of the ACL. It was aligned with the center of the ankle and 0 degrees of slope, 9 mm was then resected off the unaffected lateral side. There was found to be an acceptable reduction. At this time, posterior osteophytes were removed along with medial and lateral meniscus. A trial implant was placed with a correct sized tibia that was mentioned at the beginning of the dictation. A Alborn size 4, 11 mm PS X3 polyethylene was then placed. The patient's knee was brought through range of motion. The patella was tracking centrally and was stable to varus and valgus stress. Alignment was found to be roughly at 0 degrees. At this time, cement was mixed on the back table. The tibia was stamped and drilled in proper rotation. All cut surfaces were irrigated with pulse lavage irrigation with Ancef and then completely dried. Once this was completed, then the cement was ready. The universal tibial base plate was cemented in place. Next, the Kaci size 5 PS femur cemented into place and the Alborn size 4, 11 mm PS X3 polyethylene was placed. The patient's knee was brought into full extension. Excess cement was removed. The patella was then cemented in place at this time. Tourniquet was deflated. One liter dilute Betadine solution was irrigated through the knee along with 3 L of pulse lavage irrigation with Ancef. Periarticular injection was then completed. The patient's knee was brought through a range of motion. Once the cement had time to set up and it was found to be stable to varus valgus stress, the patella was tracking centrally with full range of motion. At this time, a #2 barbed suture was used for closure of the medial parapatellar arthrotomy. Topical tranexamic acid was placed. 2-0 Vicryl was used subcutaneously, a running 3-0 Monocryl was used subcuticularly. The patient tolerated the procedure well and was sent to the PACU in stable condition. GALEN /[id number]
== END 2017-02-27 13:55 | disposition home or self-care (01) | DRG 302 ==
LOC: JD.MS 09:53
PROVIDERS: ADMIT Orthopaedic Surgery; ATTEND Orthopaedic Surgery
PROC: 0SRC0J9 Replacement of Right Knee Joint with Synthetic Substitute, Cemented, Open Approach (ICD-10-PCS; principal; 2017-02-26)
DX: M17.11 Unilateral primary osteoarthritis, right knee (principal); M06.9 Rheumatoid arthritis, unspecified; Z87.891 Personal history of nicotine dependence; Z88.5 Allergy status to narcotic agent; Z88.8 Allergy status to other drugs, medicaments and biological substances; Z79.899 Other long term (current) drug therapy; F32.9 Major depressive disorder, single episode, unspecified; F41.9 Anxiety disorder, unspecified; R00.1 Bradycardia, unspecified
CPT/HCPCS: 01402; 36415; 73560-26-RT; 73560-RT; 80053; 85027; 93005; 97110-GP; 97116-GP; 97162-GP; 97165-GO; 97535-GO; A9270-GY; C1713; C1776; J0171; J0690; J0697; J1100; J1170; J1885; J2250; J2405; J2704; J2765; J3010; J3370; J3490; J7120

== ENCOUNTER 2017-03-26 20:37 | Emergency (ER) | payer BC ==
[2017-03-26 20:50] VITALS: BP 110/76
--- NOTE | 2017-03-26 20:59 | EDM.PDOC ---
ED HPI GENERAL MEDICAL PROBLEM - General Chief Complaint: Lower Extremity Injury/Pain Stated Complaint: lump on knee Time Seen by Provider: 03/26/17 20:59 Source of Information: Reports: Patient - History of Present Illness INITIAL COMMENTS - FREE TEXT/NARRATIVE: Patient is here for evaluation of swelling to the posterior aspect of her right knee. She states that this is not painful. She does have knee pain which is related to her recent TKR on 02/26/2017. She states that this pain is improving each day. Patient states that yesterday she did miss her dose of Xarelto and she did not wear her compression stockings as she washed them so she is very concerned about blood clot. Today she noticed the swelling to the posterior aspect of her right knee. She states that the swelling is very localized and does not hurt. She denies any shortness of breath or chest pain. She has no history of blood clot or heart disease. Treatments OUTREACH REP: Reports: Other Medication(s) Other Treatments OUTREACH REP: norco - Related Data Allergies Allergy/AdvReac Type Severity Reaction Status Date / Time codeine Allergy Mild Hives Verified 03/26/17 20:51 morphine Allergy Mild Hives Verified 03/26/17 20:51 ondansetron HCl Allergy Itching Verified 03/26/17 20:51 [From Zofran (as hydrochloride)] Home Meds: Home Meds Adalimumab [Humira] 40 mg SQ Q14D 08/29/16 [History] Folic Acid 1 mg PO DAILY 08/29/16 [History] Methotrexate Sodium [Methotrexate] 15 mg PO WEEKLY 11/06/16 [History] SUMAtriptan Succinate [Imitrex] 50 mg PO ASDIRECTED PRN 11/06/16 [History] Ca Carbonate/Vitamin D3/Vit K [Calcium + D Soft Chewable Tab] 1 tab PO DAILY 03/02 [History] Cholecalciferol (Vitamin D3) [Vitamin D3] 5,000 units PO DAILY 02/26/17 [History ] Acetaminophen/oxyCODONE [Percocet 325-5 MG] 1 - 2 tab PO Q4H PRN #60 tablet [Rx] Cyclobenzaprine [Flexeril] 10 mg PO TID PRN #40 tablet 02/27/17 [Rx] Docusate Sodium [Colace] 100 mg PO BID cap 02/27/17 [Rx] Famotidine [Pepcid] 20 mg PO Q12H tablet 02/27/17 [Rx] Rivaroxaban [Xarelto] 10 mg PO DAILY #40 tablet 02/27/17 [Rx] Past Medical History - Past Health History Medical/Surgical History: Denies Medical/Surgical History HEENT History: Reports: None Cardiovascular History: Reports: None Respiratory History: Reports: None Gastrointestinal History: Reports: Colon Polyp, Diverticulosis, Other (See Below ) Other Gastrointestinal History: hepatitis A as a teenager Genitourinary History: Reports: None [employer] History: Reports: Ectopic , , Other (See Below) Other OB/BYN History: 2/3 of one tube removed r/t ectopic Musculoskeletal History: Reports: RA, Other (See Below) Other Musculoskeletal History: enthesopathy Neurological History: Reports: Migraines Psychiatric History: Reports: None Endocrine/Metabolic History: Reports: None Hematologic History: Reports: None Immunologic History: Reports: None Oncologic (Cancer) History: Reports: None Dermatologic History: Reports: None - Infectious Disease History Infectious Disease History: Reports: Hepatitis A - Past Surgical History Head Surgeries/Procedures: Reports: None HEENT Surgical History: Reports: Oral Surgery, Other (See Below) Other HEENT Surgeries/Procedures: a few teeth removed Cardiovascular Surgical History: Reports: None Respiratory Surgical History: Reports: None GI Surgical History: Reports: Cholecystectomy, Colonoscopy, EGD, Hernia Repair/ Other Female Surgical History: Reports: Cystectomy Endocrine Surgical History: Reports: None Neurological Surgical History: Reports: None Musculoskeletal Surgical History: Reports: Carpal Tunnel, Other (See Below) Other Musculoskeletal Surgeries/Procedures:: R ankle surgery, R meniscus repair , bunion correction Oncologic Surgical History: Reports: None Dermatological Surgical History: Reports: None Social & Family History - Family History Family Medical History: Noncontributory - Tobacco Use Smoking Status *Q: Former Smoker Used Tobacco, but Quit: Yes Month Tobacco Last Used: 10 years ago Second Hand Smoke Exposure: No - Caffeine Use Caffeine Use: Reports: None - Alcohol Use Days Per Week of Alcohol Use: 0 - Recreational Drug Use Recreational Drug Use: No Review of Systems - Review of Systems Review Of Systems: See Below Constitutional: Reports: No Symptoms Respiratory: Denies: Shortness of Breath, Pleuritic Chest Pain Cardiovascular: Reports: Edema (Mild edema to her RLE this since her TKR, this is improving per her report.). Denies: Chest Pain Musculoskeletal: Reports: Other (Right knee pain since TKR, improving.) Skin: Reports: Other (Surgical incision to anterior right knee) Neurological: Reports: No Symptoms ED EXAM, GENERAL - Physical Exam Exam: See Below Exam Limited By: No Limitations General Appearance: Alert, WD/WN, No Apparent Distress Respiratory/Chest: No Respiratory Distress, Lungs Clear, Normal Breath Sounds Cardiovascular: Normal Peripheral Pulses, Regular Rate, Rhythm, No Murmur Peripheral Pulses: 2+: Posterior Tibial (L), Posterior Tibial (R) Extremities: Other (Well-healing anterior surgical scar to the right knee. Localized swelling to right popliteal area. Right calf mildly larger compared to left. Patient does have limited range of motion in proportion with recent surgery. Homans sign is negative.) Neurological: Alert, Oriented Course - Vital Signs Last Recorded V/S: Last Vital Signs Temp 97.4 F 03/26/17 20:46 Pulse 105 H 03/26/17 20:46 Resp 18 03/26/17 20:46 BP 110/76 03/26/17 20:46 Pulse Ox 97 03/26/17 20:46 - Orders/Labs/Meds Orders: Active Orders 24 hr Category Date Time Status VL Duplex Lwr Ext Veins Ltd Rt [US] Stat Exams 03/26/17 21:26 Taken - Re-Assessments/Exams Free Text/Narrative Re-Assessment/Exam: Patient's swelling is very localized to the right popliteal area, calf swelling is mild and could be considered normal with her recent TKR. As patient has not been wearing her compression stockings for a day and did miss a dose of Xarelto will get an ultrasound of the RLE to further evaluate. 03/26/17 21:37 US demonstrates No evidence of DVT. Heterogeneous area in the popliteal fossa at the site of swelling measures 3.7x4.0x1.2cm. No popliteal cyst. Likely related to healing from TKR and not wearing compression stocking to PT today. FU with orthopedics as scheduled or certainly return to ER if needed. 03/26/17 22:37 Departure - Departure Time of Disposition: 22:36 Disposition: Home, Self-Care 01 Condition: Good Clinical Impression: Effusion of knee joint right - Discharge Information Referrals: Martina Landry PA-C [Primary Care Provider] - Forms: ED Department Discharge Additional Instructions: Rest, ice and activity as tolerated. continue with physical therapy and FU with Dr Suero as planned. You certainly may return to ER if needed. - My Orders Last 24 Hours: My Active Orders 03/26/17 21:26 VL Duplex Lwr Ext Veins Ltd Rt [US] Stat - Assessment/Plan Last 24 Hours: My Active Orders 03/26/17 21:26 VL Duplex Lwr Ext Veins Ltd Rt [US] Stat
--- NOTE | 2017-03-27 12:47 | US ---
Right lower extremity deep venous ultrasound: Duplex and color flow imaging was obtained of the right common femoral, proximal greater saphenous, superficial femoral, popliteal, posterior tibial and peroneal veins. Left common femoral vein was also evaluated. Findings: Normal phasic flow, augmentation and compression are seen. Heterogeneous area identified within the right popliteal fossa measuring up to 4.0 cm. This appears to correlate to reported area of swelling. This raises the possibility of hematoma. Impression: 1. No findings of deep venous thrombosis within the right lower extremity or within the left common femoral vein. 2. Heterogeneous area within the right popliteal fossa measuring up to 4.0 cm most likely representing an area of hematoma. Please correlate that patient has no signs of infection which could also have a similar appearance. Diagnostic code #3 Agree with preliminary report issued by [facility] ([facility] preliminary report dictated on 03/26/17, 11:27 PM Central Time)
== END 2017-03-26 22:44 | disposition home or self-care (01) ==
LOC: JD.ED 20:37
DX: M25.461 Effusion, right knee (principal); Z88.5 Allergy status to narcotic agent; Z88.8 Allergy status to other drugs, medicaments and biological substances; Z79.899 Other long term (current) drug therapy
CPT/HCPCS: 93971-26-RT; 93971-RT; 99282; 99284-25